=== PATIENT | male | born 1990 | race Caucasian/White ===

== ENCOUNTER 2019-05-04 18:01 | Emergency (ER) | payer BC, OTHER, SELFPAY ==
[2019-05-04 18:02] VITALS: BP 123/71; PULSE 119; RESP 16; TEMP 36.4; O2SAT 96; BMI 32.8
--- NOTE | 2019-05-04 18:24 | CT_ITS ---
STUDY: CT BRAIN WITHOUT CONTRAST REASON FOR EXAM: Male, 29 years old. Head and neck pain. RADIATION DOSAGE (If Supplied By Facility): CTDIvol = ( 44.99 ) mGy, DLP = ( 812.98 ) mGycm TECHNIQUE: Transaxial CT imaging of the brain was performed without administration of intravenous contrast material. Individualized dose optimization techniques were used for this CT. COMPARISON: CTA of the brain dated August 04, 2011 FINDINGS: Normal soft tissue structures. Normal calvarium. Normal size ventricles and extra-axial spaces for the patient's age. Normal white matter tracts of the cerebral hemispheres. Normal basal ganglia and thalami. Normal brainstem. Normal cerebellum. There is no intracranial hemorrhage. There are no findings of an acute ischemic infarction. Normal visualized paranasal sinuses. CT/Brain/Head without Contrast IMPRESSION: No acute intracranial process. Electronically Signed: Maya Díaz MD at 19:59 EDT Tel , Service support ,
--- NOTE | 2019-05-04 18:26 | ED.DCSUM_ITS ---
History of Present Illness Chief Complaint: Other, Pain/Inj Detail of Chief Complaint: Headache, neck pain Informant: Patient, Significant Other Onset: Weeks - 1 week Timing: Continuous Current Severity: Mild Maximum Severity: Moderate Narrative: Patient presents with a one-week history of neck pain and headache. He has a history of migraines and cluster headaches but states this headache is different. He initially started with neck pain. He denies any injury. He states that started after returning home from work. 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 He does report having some nausea and vomiting but no diarrhea. He has some mild abdominal pain. No sore throat. - Past Medical History (1) Frequent headaches Status: Chronic (2) ADHD Status: Chronic (3) Anxiety Status: Chronic (4) Depression Status: Chronic Past Medical History - Allergies and Home Meds Allergies/Adverse Reactions: Allergies No Known Allergies Allergy (Verified 05/04/19 18:02) Primary Care Physician: Billie Foster MD [Primary Care Provider] - Prior records reviewed: Yes Past Medical History: - - Reviewed Lives: Spouse/ Significant Other Smoking Status: Never smoker Review of Systems General: Reports: Fever - Subjective fever Eyes: Denies: Visual changes - left, Visual changes - right ENT: Denies: Bilateral ear pain, Sore throat Cardiovascular: Denies: Chest pain Respiratory: Denies: Dyspnea, Cough Gastrointestinal: Reports: Abdominal pain, Nausea, Vomiting. Denies: Diarrhea Genitourinary: Denies: Dysuria Musculoskeletal: Reports: Neck pain. Denies: Back pain, Extremity Pain Skin: Denies: Rash Neurological: Reports: Headache. Denies: Weakness, Parasthesia Hematologic: Denies: Easy bleeding Allergy: Denies: Uticaria Physical Exam Vital Signs/Narrative: Vital Signs Temp Pulse Resp BP Pulse Ox 05/04/19 18:02 97.6 F L 119 H 16 123/71 H 96 Inital Vital Signs reviewed: Yes General: Well nourished, Well developed Head: Normocephalic Eyes: Perrl, EOMI ENT: Moist mucous membranes, TM's clear, - - Diffuse tenderness to palpation throughout the cervical paraspinal region. There is no meningismus. He turns his head a full 90 degrees to each side. Cardiovascular: Regular rate, Regular rhythm Respiratory: No distress, CTA bilaterally Abdomen: Soft, Nontender, Normal bowel sounds Skin: Normal color Neurological: Alert, Oriented x3 Psychological: Normal affect Diagnostic/Tx/Re-eval Impressions Brain CT 05/04/19 18:24 IMPRESSION: No acute intracranial process. Electronically Signed: Maya Díaz MD at 19:59 EDT Tel , Service support , 05/04/19 18:24 Brain/Head without Contrast [CT] Stat Laboratory Results 05/04/19 05/04/19 18:30 18:30 WBC 5.2 RBC 4.58 L Hgb 14.1 Hct 39.3 L MCV 85.8 MCH 30.8 MCHC 35.9 RDW Std Deviation 38.0 RDW Coeff of Rhonda 12.2 Plt Count 154 MPV 10.1 Immature Gran % (Auto) 0.400 Neut % (Auto) 66.5 Lymph % (Auto) 21.9 [place] % (Auto) 10.8 H Eos % (Auto) 0.2 Baso % (Auto) 0.2 Absolute Neuts (auto) 3.5 Absolute Lymphs (auto) 1.14 Absolute Nucleated RBC 0.00 Nucleated RBC % 0 Sodium 133 L Potassium 3.6 Chloride 103 Carbon Dioxide 26.0 Anion Gap 4 L BUN 10 Creatinine 0.95 Estim Creat Clear Calc 122.20 Est GFR (MDRD) Af Amer 121 Est GFR (MDRD) Non-Af 100 BUN/Creatinine Ratio 10.5 Glucose 113 H Calcium 8.8 - Medical Decision Making Patient presented for a one-week history of neck pain and headache. He clinically does not have sign of meningitis. He was given Toradol, Reglan, and Benadryl along with IV fluids. Blood work and CT scan do not show any acute concerns. On repeat evaluation he states his headache is resolved and his neck pain is improved. He will be given a prescription for naproxen to help his neck pain. He is to return for worsening symptoms or concerns. ED Disposition - Plan for ED Patient: Disposition: Home or Assisted Living Diagnosis: Cephalgia, Neck pain Instructions: NECK PAIN, No Trauma, HEADACHE, Unspecified Prescriptions: Naproxen [Naprosyn] 500 mg PO BID PRN PRN #20 tablet PRN Reason: Pain Referrals: Billie Foster MD [Primary Care Provider] - 5-7 Days
[2019-05-04] MEDS: Ketorolac 30 MG/ML Syringe IV (18:35)
[2019-05-04] MEDS: 0.9% Normal Saline 1,000 ML 1000 ML IV (18:35)
[2019-05-04] MEDS: Metoclopramide 10 MG/2 ML Vial IV (18:35)
[2019-05-04] MEDS: DiphenhydrAMINE 50 MG/ML Syringe 25 MG IV (18:35)
[2019-05-04 18:48] LABS: Absolute Lymphocyte Count 1.14 X10^3/uL (0.83-4.51); Absolute Neutrophil Count 3.5 X10^3/uL (2.0-7.7); Basophil# 0.01 X10^3/uL; Basophil% 0.2 % (0-1); Eosinophil# 0.01 X10^3/uL; Eosinophils% 0.2 % (0-5); Hematocrit 39.3 % (40-54); Hemoglobin 14.1 g/dL (13.0-16.5); Lymphocyte # 1.14 X10^3/ul (4.0); Lymphocyte % 21.9 % (19-41); Mean Corp Hgb Conc 35.9 g/dL (32-36); Mean Corpuscular Hgb 30.8 pg (27.0-32.0); Mean Corpuscular Volume 85.8 fL (80-94); Mean Platelet Vol. 10.1 fl (6.2-12.0); Monocyte# 0.56 X10^3/uL; Monocyte% 10.8 % (0-10); NRBC Flagged by Analyzer 0 % (0-5); Neutrophil # 3.46 X10^3/uL (2.7-7.7); Neutrophil % 66.5 % (47-70); Platelet Count 154 K/mm3 (150-450); RBC Distribution Width CV 12.2 % (11.6-14.6); Red Blood Count 4.58 M/mm3 (4.6-6.2); White Blood Count 5.2 K/mm3 (4.4-11.0)
[2019-05-04 18:55] LABS: Anion Gap 4 (5-15); BUN 10 mg/dL (7-18); BUN/Creat Ratio 10.5 RATIO (10-20); Calcium,Total 8.8 mg/dL (8.5-10.1); Chloride 103 mmol/L (98-107); Creatinine, Serum 0.95 mg/dL (0.70-1.30); EST Glomerular Filtration Rate 100 mL/min (>60); Est Glom Filt Rate - Afr Amer 121 mL/min (>60); Glucose 113 mg/dL (74-106); Potassium 3.6 mmol/L (3.5-5.1); Sodium Level 133 mmol/L (136-145)
[2019-05-04 20:45] VITALS: BP 106/73; PULSE 79; RESP 16; O2SAT 98
== END 2019-05-04 20:46 | disposition home or self-care (01) ==
PROVIDERS: Emergency Provider Emergency Medicine; Family Provider Internal Medicine; PCP Internal Medicine
DX: R51 Headache (principal); M54.2 Cervicalgia
CPT/HCPCS: 70450; 80048; 85025; 96361; 96374; 96375; 99283; J7030; A4216

== ENCOUNTER 2019-05-21 18:08 | Emergency (ER) | payer BC, OTHER, SELFPAY ==
[2019-05-21 18:08] VITALS: BP 116/72; PULSE 114; RESP 18; TEMP 36.2; O2SAT 98; BMI 34.8
--- NOTE | 2019-05-21 18:42 | ED.VIS.GEN ---
History of Present Illness Chief Complaint: Rash Informant: Patient Onset: Month(s) - 1 or more Context: Gradual Onset Timing: Continuous Quality: sore Location: legs, forearms Current Severity: Moderate Maximum Severity: Moderate Worsened by: palpation Relieved by: leaving alone. not by ibuprofen. Associated Symptoms: joint pains, especially in MCPJs, wrists, knees, ankles Narrative: Patient was seen by his PCP less than 1 week ago for this condition, he had some labs done, he showed me the results. They include CBC, CMP, CPK, ESR, CRP, MIMA, TSH. MIMA was negative. ESR and CRP were just barely elevated. CPK and TSH were normal. The other results were fairly unremarkable. Patient has had painful raised red lumps on his legs and forearms, joint aches. He states the pain is worsened and he was told that if the pain did worsen he should come back to the ER. He denies any new symptoms. No fevers. No dysuria or urethral discharge. No recent treatment for any STDs. - Past Medical History (1) ADHD Status: Chronic (2) Anxiety Status: Chronic (3) Depression Status: Chronic (4) Frequent headaches Status: Chronic Past Medical History - Allergies and Home Meds Allergies/Adverse Reactions: Allergies No Known Allergies Allergy (Verified 05/04/19 18:02) Primary Care Physician: Billie Foster MD [Primary Care Provider] - Lives: Spouse/ Significant Other Smoking Status: Never smoker Drugs: None Review of Systems General: Reports: Weight loss - Unknown details.. Denies: Chills, Fever, Sweats Eyes: Denies: Visual changes - bilaterally, Diplopia ENT: Denies: Rhinorrhea, Sore throat Cardiovascular: Denies: Chest pain, Palpitations Respiratory: Denies: Dyspnea, Cough, Dyspnea on exertion Gastrointestinal: Denies: Abdominal pain, Nausea, Vomiting, Diarrhea, Melena, Hematochezia Genitourinary: Denies: Dysuria, Hematuria, Frequency Musculoskeletal: Reports: Arthralgias, Extremity Pain. Denies: Back pain, Swelling Skin: Reports: Rash. Denies: Abscess, Wounds Neurological: Reports: Headache - Off and on. Denies: Weakness, Numbness Physical Exam Vital Signs/Narrative: Vital Signs Temp Pulse Resp BP Pulse Ox 05/21/19 18:08 97.1 F L 114 H 18 116/72 98 Inital Vital Signs reviewed: Yes General: Well nourished, Well developed, No Acute Distress Head: Normocephalic, Atraumatic Eyes: Perrl, EOMI ENT: Moist mucous membranes, No rhinorrhea Neck: Supple, Nontender, No lymphadenopathy Extremities: No edema, Tenderness - At subcutaneous nodules on legs and more mild on forearms, - - Some swelling of both knees, ankles, no objective swelling elsewhere but has full range of motion of all joints throughout all 4 extremities. No excessive warmth or erythema noted. Has pain when moving knees, ankles, wrists, MCP J's. No Heberden's or Zehra's nodes objectively. Skin: Normal color, No Trauma, Rash - Mildly tender subcutaneous erythematous nodules on shins and medial calves, no palpable cords or lymphangitic streaking or signs of infection. Similar on forearms but smaller and not raised as much. No purpura, ecchymosis, petechiae, bullae. Neurological: Alert, Oriented x3, Cranial nerves II-XII grossly intact, Normal Strength, Normal Sensation, Normal Gait Psychological: Normal Mood, - - Anxious Diagnostic/Tx/Re-eval - Medical Decision Making Looking at the labs that were done on 05/16/2019, as the patient showed me from [facility] website, I do not think any of these need to be repeated. I do not think I have any other tests that will benefit him emergently at this time. I think it would be reasonable to try prednisone, he is amenable to trying that, I will do a 5-day burst to see if it helps, in addition to a dose of colchicine because the lower extremity exam is consistent with erythema nodosum. The cause is unknown at this time. He should follow-up with his PCP, he states he is planning on it has an appointment. ED Disposition - Plan for ED Patient: Disposition: Home or Assisted Living Diagnosis: Erythema nodosum, Arthralgia Instructions: Blank Diagnosis Form Prescriptions: Prednisone [Deltasone] 40 mg PO DAILY #10 tab Prescription Printed Referrals: Billie Foster MD [Primary Care Provider] - As soon as possible Additional Instructions: Erythema nodosum is an inflammatory disorder. It involves tender, red bumps (nodules) under the skin. Causes In about half of cases, the exact cause of erythema nodosum is unknown. The remaining cases are associated with an infection or other systemic disorder. Some of the more common infections associated with the disorder are: Streptococcus (most common) Cat scratch disease Chlamydia Coccidioidomycosis Hepatitis B Histoplasmosis Leptospirosis Mononucleosis (EBV) Mycobacteria Mycoplasma Psittacosis Syphilis Tuberculosis [place] Yersinia Erythema nodosum may occur with sensitivity to certain medicines, including: Antibiotics, including amoxicillin and other penicillins Sulfonamides Sulfones control pills Progestin Sometimes, erythema nodosum may occur during . Other disorders linked to this condition include leukemia, lymphoma, sarcoidosis, rheumatic fever, Bechet disease, and ulcerative colitis. The condition is more common in women than it is in men. Symptoms Erythema nodosum is most common on the front of the shins. It may also occur on other areas of the body such as buttocks, calves, ankles, thighs, and arms. The lesions begin as flat, firm, hot, red, painful lumps that are about 1 inch (2.5 centimeters) across. Within a few days, they may become purplish in color. Over several weeks, the lumps fade to a brownish, flat patch. Other symptoms may include: Fever General ill feeling (malaise) Joint aches Skin redness, inflammation, or irritation Swelling of the leg or other affected area Exams and Tests Your health care provider can diagnose this condition by looking at your skin. Tests that may be done include: Punch biopsy of a nodule Throat culture to rule out a strep infection Chest x-ray to rule out sarcoidosis or tuberculosis Blood tests to look for infections or other disorders Treatment The underlying infection, drug, or disease should be identified and treated. Treatment may include: Nonsteroidal anti-inflammatory drugs (NSAIDs). Stronger anti-inflammatory medicines called corticosteroids, taken by mouth or given as a shot. Potassium iodide (SSKI) solution, most often given as drops added to orange juice. Other oral medicines that work on the body's immune system. Pain medicines (analgesics). Rest. Raising the sore area (elevation). Hot or cold compresses to help reduce discomfort. [place] (Prognosis) Erythema nodosum is uncomfortable, but not dangerous in most cases. Symptoms most often go away within about 6 weeks, but may return.
[2019-05-21] MEDS: predniSONE 20 MG Tablet 40 MG PO (19:09)
== END 2019-05-21 19:35 | disposition home or self-care (01) ==
PROVIDERS: Emergency Provider Emergency Medicine; Family Provider Internal Medicine; PCP Internal Medicine
DX: L52 Erythema nodosum (principal); M25.50 Pain in unspecified joint; R51 Headache; F90.9 Attention-deficit hyperactivity disorder, unspecified type
CPT/HCPCS: 99283

== ENCOUNTER → 2019-09-05 11:31 | Outpatient (CLI) | payer BC, OTHER, SELFPAY | PROVIDERS: Family Provider Internal Medicine; PCP Internal Medicine; Referring Provider Obstetrics & Gynecology; Visit Provider Obstetrics & Gynecology | DX: Z31.440 Encounter of male for testing for genetic disease carrier status for procreative management (principal) | CPT/HCPCS: 36415 ==

== ENCOUNTER 2019-10-09 18:11 | Emergency (ER) | payer BC, OTHER, SELFPAY ==
[2019-10-09 18:12] VITALS: BP 123/76; PULSE 124; RESP 19; TEMP 36.7; O2SAT 99; BMI 33.5
[2019-10-09 18:22] VITALS: PULSE 120; RESP 15; O2SAT 99
[2019-10-09] MEDS: Metoclopramide 10 MG/2 ML Vial IV (18:44)
[2019-10-09] MEDS: DiphenhydrAMINE 50 MG/ML Syringe 25 MG IV (18:44)
[2019-10-09] MEDS: Ketorolac 30 MG/ML Syringe IV (18:44)
[2019-10-09] MEDS: 0.9% Normal Saline 1,000 ML 999 ML IV (18:44)
--- NOTE | 2019-10-09 19:52 | ED.DCSUM_ITS ---
History of Present Illness Chief Complaint: Nausea/Vomiting/Diarrhea Detail of Chief Complaint: Migraine Informant: Patient Onset: Today Context: Gradual Onset Current Severity: Moderate Maximum Severity: Moderate Narrative: Patient presents with migraine headache that started around 3 PM this afternoon. He states it is generalized in location. He said nausea and vomiting along with photophobia as well. His is currently down in L&D and is in labor. Patient is hoping to get some medication for his head so can go back down to be with her. Patient states this does feel typical of his migraines. Has had no recent head injury or URI symptoms. - Past Medical History (1) Frequent headaches Status: Chronic (2) ADHD Status: Chronic (3) Anxiety Status: Chronic (4) Depression Status: Chronic Past Medical History - Allergies and Home Meds Allergies/Adverse Reactions: Allergies No Known Allergies Allergy (Verified 10/09/19 18:11) Primary Care Physician: Billie Foster MD [Primary Care Provider] - Prior records reviewed: Yes Lives: With Family Smoking Status: Never smoker Review of Systems General: Denies: Chills, Fever Eyes: Denies: Visual changes - bilaterally ENT: Denies: Bilateral ear pain Cardiovascular: Denies: Chest pain Respiratory: Denies: Dyspnea, Cough Gastrointestinal: Reports: Nausea, Vomiting. Denies: Abdominal pain Musculoskeletal: Denies: Extremity Pain Skin: Denies: Rash Neurological: Reports: Headache. Denies: Weakness, Parasthesia Allergy: Denies: Uticaria Physical Exam Vital Signs/Narrative: Vital Signs Temp Pulse Resp BP Pulse Ox 10/09/19 18:22 120 H 15 99 10/09/19 18:12 98.0 F 124 H 19 H 123/76 H 99 Inital Vital Signs reviewed: Yes General: Well nourished, Well developed Head: Normocephalic ENT: Moist mucous membranes Neck: Supple Cardiovascular: Tachycardia Respiratory: No distress, CTA bilaterally Abdomen: Soft, Nontender, Nondistended Extremities: Nontender Skin: Normal color, No rash Neurological: Alert, Oriented x3, Normal Strength, Normal Sensation Psychological: Normal affect Diagnostic/Tx/Re-eval - Medical Decision Making Patient was given Toradol, Reglan, Benadryl, and IV fluids. On repeat evaluation he states his nausea is gone. His headache is at least 50% improved. He will be discharged at this time to go back down to L&D and be with his f amily. ED Disposition - Plan for ED Patient: Disposition: Home or Assisted Living Diagnosis: Migraine Instructions: ED, Migraine (Classical) Referrals: Billie Foster MD [Primary Care Provider] - As Needed
[2019-10-09 20:06] VITALS: BP 106/71; PULSE 99; RESP 16; O2SAT 98
== END 2019-10-09 20:09 | disposition home or self-care (01) ==
PROVIDERS: Emergency Provider Emergency Medicine; Family Provider Internal Medicine; PCP Internal Medicine
DX: G43.909 Migraine, unspecified, not intractable, without status migrainosus (principal); F32.9 Major depressive disorder, single episode, unspecified
CPT/HCPCS: 96361; 96374; 96375; 99284; J7030

== ENCOUNTER → 2019-11-21 15:51 | Outpatient (CLI) | payer BC, OTHER, SELFPAY ==
--- NOTE | 2019-11-21 15:55 | CT_ITS ---
STUDY: CT MAXILLOFACIAL SINUSES REASON FOR EXAM: Male, 29 years old. SINUSITIS AND BILATERAL EAR PAIN X 4 WEEKS RADIATION DOSAGE (If Supplied By Facility): CTDIvol = ( 33.06 ) mGy, DLP = ( 810.10 ) mGycm TECHNIQUE: The patient was scanned in a multi detector CT scanner. High resolution axial imaging was performed without the administration of intravenous contrast material. Sagittal and coronal images were reconstructed. Individualized dose optimization techniques were used for this CT. COMPARISON: None. FINDINGS: FRONTAL SINUSES: Normal aeration, without mucosal inflammatory disease. ETHMOIDAL SINUSES: Normal aeration, without mucosal inflammatory disease. MAXILLARY SINUSES: 2.6 cm left maxillary sinus mucosal retention cyst. No air-fluid levels. The right maxillary sinus is normal. SPHENOIDAL SINUSES: Normal aeration, without mucosal inflammatory disease. There is patency of the bilateral maxillary infundibuli with normal uncinate processes, ethmoid bullae, and hiatus semilunaris. Normal bilateral middle turbinates. Normal bilateral inferior turbinates. Normal midline nasal septum. There is patency of the bilateral nasal airways. The visualized osseous structures are normal. The visualized bilateral orbital contents are normal. Mastoid air cells are unremarkable. CT/Sinus/Facial Bone IMPRESSION: Left maxillary sinus mucosal retention cyst. Otherwise normal. Electronically Signed: Maverick Ludwig MD ([place]) at 15:39 EST , Service support ,
== END ==
PROVIDERS: PCP Internal Medicine; Referring Provider Otolaryngology; Visit Provider Otolaryngology
DX: J32.9 Chronic sinusitis, unspecified (principal)
CPT/HCPCS: 70486

== ENCOUNTER 2020-07-09 21:02 | Emergency (ER) | payer BC, OTHER, SELFPAY ==
[2020-07-09 21:04] VITALS: BP 120/91; PULSE 90; RESP 18; TEMP 36.8; O2SAT 99; BMI 28.3
--- NOTE | 2020-07-09 21:29 | ED.RN ---
PT PRESENTS WITH RAMBLING SPEECH, FIXATED ON VARIOUS HEALTH ISSUES, REMAINS COOPERATIVE, ANSWERS ALL QUESTIONS. PT ADAMANTLY DENIES SUICIDAL IDEATIONS, STATES ALL SELF INFLICTED WOUNDS ARE FROM BEING ANGERED, AND DEALING WITH PAIN AND FRUSTRATIONS.
--- NOTE | 2020-07-09 21:55 | ED.RN ---
PER DR. STANFORD, PT DOES NOT NEED A SITTER, HE WILL GO HOME ON A SAFETY PLAN.
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
[2020-07-09 23:16] VITALS: BP 122/89; PULSE 78; RESP 16; O2SAT 98
== END 2020-07-09 23:18 | disposition home or self-care (01) ==
PROVIDERS: Emergency Provider Emergency Medicine; PCP Internal Medicine
DX: S61.512A Laceration without foreign body of left wrist, initial encounter (principal); S51.812A Laceration without foreign body of left forearm, initial encounter; Y28.1XXA Contact with knife, undetermined intent, initial encounter; Y93.89 Activity, other specified; Y92.009 Unspecified place in unspecified non-institutional (private) residence as the place of occurrence of the external cause; S01.81XA Laceration without foreign body of other part of head, initial encounter; W22.8XXA Striking against or struck by other objects, initial encounter; Y93.02 Activity, running; F90.9 Attention-deficit hyperactivity disorder, unspecified type; F32.9 Major depressive disorder, single episode, unspecified; F41.9 Anxiety disorder, unspecified
CPT/HCPCS: 12001; 12011; 99285; A4216

== ENCOUNTER 2020-10-21 19:41 | Emergency (ER) | payer MEDICARE, MEDICAID, OTHER, SELFPAY ==
[2020-10-21 19:42] VITALS: BP 122/86; PULSE 96; RESP 15; TEMP 36.1; O2SAT 100; BMI 27.8
--- NOTE | 2020-10-21 20:01 | ED.VIS.GEN ---
History of Present Illness Chief Complaint: Headache Narrative: Patient presents with a few day history of gradual onset of a right-sided headache some of the headache is behind the right eye. He tells me he has both migraine headaches and cluster headaches and this feels similar to both. He denies vision changes. He denies weakness or paresthesias. No chest pain or shortness of breath. Review of systems: All systems negative except as indicated General: Denies: Fever Eyes: Denies: Visual changes - bilaterally ENT: Denies: Rhinorrhea, Sore throat Cardiovascular: Denies: Chest pain Respiratory: Denies: Dyspnea, Cough Gastrointestinal: Denies: Abdominal pain, Nausea, Vomiting Genitourinary: Denies: Dysuria Musculoskeletal: Denies: Myalgias Skin: Denies: Rash Neurological: Headache as in HPI Psych: Reports: negative Hematologic: Denies: Easy bruising, Easy bleeding Physical exam General: Well nourished, Well developed, No Acute Distress Head: Normocephalic, Atraumatic Eyes: Conjunctiva not pale ENT: Moist mucous membranes Neck: Supple, Nontender, No lymphadenopathy Cardiovascular: Regular rate, Regular rhythm Respiratory: No distress, CTA bilaterally Abdomen: Soft, Nontender, Nondistended Back: Nontender, Normal Inspection. Negative for: CVA tenderness Extremities: Nontender, No edema Skin: Normal color, No rash Neurological: Alert, Normal Strength, Normal Sensation, no focal neurological deficit. Psychological: Normal affect Past Medical History - Allergies and Home Meds Allergies/Adverse Reactions: Allergies No Known Allergies Allergy (Verified 10/21/20 19:44) Primary Care Physician: Billie Foster MD [Primary Care Provider] - Surgical History: noncontributory Smoking Status: Never smoker Physical Exam Vital Signs/Narrative: Vital Signs Temp Pulse Resp BP Pulse Ox 10/21/20 19:42 97 F L 96 15 122/86 H 100 Diagnostic/Tx/Re-eval - Medical Decision Making Patient has significant improvement of his headache. He appears well, he has a normal neurological exam. He has chronic recurrent headaches and this is similar with normal vitals I believe he can be discharged no further testing is needed. No imaging is needed. ED Disposition - Plan for ED Patient: Disposition: Home or Assisted Living Diagnosis: Headache Instructions: ED Headache Unspecified Referrals: Billie Foster MD [Primary Care Provider] - 2 Days
[2020-10-21] MEDS: 0.9% Normal Saline 1,000 ML 999 ML IV (20:17)
[2020-10-21] MEDS: Ketorolac 15 MG/ML Vial IV (20:18)
[2020-10-21] MEDS: DiphenhydrAMINE 50 MG/ML Syringe 25 MG IV (20:18)
[2020-10-21] MEDS: Metoclopramide 10 MG/2 ML Vial IV (20:18)
[2020-10-21 22:06] VITALS: BP 114/76; PULSE 82; RESP 16; O2SAT 98
== END 2020-10-21 22:06 | disposition home or self-care (01) ==
PROVIDERS: Emergency Provider Emergency Medicine; PCP Internal Medicine
DX: R51.9 Headache, unspecified (principal)
CPT/HCPCS: 96361; 96374; 96375; 99283

== ENCOUNTER 2021-06-04 13:29 | Emergency (ER) | payer MEDICARE, OTHER, MEDICAID, SELFPAY ==
[2021-06-04 13:30] VITALS: BP 118/72; PULSE 156; RESP 18; TEMP 37.7; O2SAT 98; BMI 32.1
--- NOTE | 2021-06-04 13:47 | EKG12_ITS ---
Test Reason : HEADACHE Blood Pressure : / mmHG Vent. Rate : 127 BPM Atrial Rate : 127 BPM P-R Int : 170 ms QRS Dur : 084 ms QT Int : 302 ms P-R-T Axes : 053 053 022 degrees QTc Int : 438 ms Sinus tachycardia Incomplete right bundle branch block Confirmed by SHIRA SIDDIQUI, STAS ([id number]), sound editor CHARLENE CARDONA ([id number]) on 06/08/2021 9:03:43 AM Referred By: CONSTANCE Confirmed By:STAS SILVA MD
--- NOTE | 2021-06-04 13:48 | EX.ED.DYSGE1 ---
HPI History of Present Illness Chief Complaint: Headache Informant: patient and spouse/S.O. Onset/Context/Timing Onset: Today Context: Gradual Onset Current Severity: Moderate Maximum Severity: Moderate Narrative Narrative: Patient present secondary to headache and fever. He started getting chills last evening and this morning developed a fever up to 101.3. He did not take anything for fever. He is complaining of a headache behind his eyes on both sides. He has a history of similar headaches but states that usually not bilateral. He was outside his window for his abortive migraine medicine and did not take that this morning. Patient's states that he has been complaining that his neck is stiff and he cannot talk his chin to his chest. Patient was seen a week ago with a right hand fracture and that is currently splinted. [facility] Medical History ADHD Anxiety Depression Frequent headaches Tachycardia Home Medications methotrexate sodium 10 tab PO QWEEK 10/09/19 [History Last Taken 10/03/19] adalimumab 1 injectable SQ QWEEK 07/09/20 [History Last Taken Unknown] baclofen 10 mg PO BID 07/09/20 [History Last Taken Unknown] folic acid 2 mg PO DAILY 07/09/20 [History Last Taken Unknown] galcanezumab-gnlm 120 mg SQ QMONTH 07/09/20 [History Last Taken Unknown] hydroxyzine HCl 50 mg PO TID PRN 07/09/20 [History Last Taken Unknown] ondansetron 4 mg PO Q8H PRN PRN 07/09/20 [History Last Taken Unknown] paliperidone 6 mg PO DAILY 10/21/20 [History Last Taken Unknown] sumatriptan succinate 100 mg PO .X1 PRN 10/21/20 [History Last Taken Unknown] Allergy/AdvReac Type Severity Reaction Status Date / Time No Known Allergies Allergy Verified 06/04/21 13:30 Social History Smoking Status: Never smoker ROS ROS ED Constitutional Constitutional ED: Reports chills and fever(s) Eyes Eyes: Reports other Details: Light sensitive ; Denies change in vision ENT ENT ED: Reports other Details: Neck stiffness ; Denies sore throat Cardiovascular Cardiovascular: Denies chest pain Respiratory/Chest Respiratory/Chest: Denies cough or dyspnea Gastrointestinal Gastrointestinal: Denies abdominal pain, diarrhea, nausea or vomiting Genitourinary Genitourinary ED: Denies dysuria Musculoskeletal Musculoskeletal: Reports neck pain; Denies back pain Integumentary Denies rash Neurologic Neurologic: Reports headache(s); Denies weakness Psychiatric Psychiatric: Denies anxiety or depression Allergic/Immunologic Allergic/Immunologic ED: Denies urticaria EXAM Physical Exam Const Vital Signs: 06/04/21 13:30 06/04/21 14:39 06/04/21 16:21 Temperature 99.8 F H Temperature Source Temporal Pulse Rate 156 H 126 H 125 H Respiratory Rate 18 20 H Blood Pressure 118/72 Blood Pressure Mean 87 Pulse Ox 98 Oxygen Delivery Method Room Air Positive well nourished and well developed General Appearance ED: well developed HEENT Reports normocephalic and head/scalp atraumatic Eyes PERRL and EOMs intact bilaterally Neck supple Neck Narrative: No meningismus on exam. Chest Wall inspection of chest normal and palpation of chest normal Resp normal respiratory effort and clear to auscultation bilaterally Cardio regular rate and regular rhythm GI normal to inspection, nondistended, normoactive bowel sounds Palpation: soft Extremity Extremity Narrative: Splint in place on right hand. Neuro oriented x3 and no sensory deficits noted Sensorium / Orientation: alert Motor Exam: strength 5/5 throughout Psych mental status grossly normal Skin no rashes or lesions noted MDM MDM MDM Narrative Medical decision making narrative: Patient was given Toradol, Reglan, Benadryl, IV fluids. Lab work obtained. Covid swab obtained. Lab Data Attestation: I reviewed the patient's lab results. Labs: Laboratory Results - last 24 hr 06/04/21 06/04/21 14:32 14:32 WBC 12.9 H RBC 3.91 L Hgb 13.0 Hct 36.5 L MCV 93.4 MCH 33.2 H MCHC 35.6 RDW Std Deviation 44.0 H RDW Coeff of Rhonda 12.9 Plt Count 188 MPV 9.1 Immature Gran % (Auto) 0.500 Neut % (Auto) 88.6 H Lymph % (Auto) 4.7 L [place] % (Auto) 6.0 Eos % (Auto) 0.0 Baso % (Auto) 0.2 Absolute Neuts (auto) 11.4 H Absolute Lymphs (auto) 0.61 L Nucleated RBC % 0 Sodium 139 Potassium 3.3 L Chloride 105 Carbon Dioxide 27.0 Anion Gap 7 BUN 18 Creatinine 0.91 Estim Creat Clear Calc 125.27 Est GFR (MDRD) Af Amer 125 Est GFR (MDRD) Non-Af 104 BUN/Creatinine Ratio 19.8 Glucose 91 Calcium 8.7 Covid swab negative Radiography Diagnostic Testing: Radiology Impression Hand X-Ray 06/04/21 16:10 IMPRESSION: Acute nondisplaced volarly angulated oblique fracture of the base of the fifth metacarpal bone. Electronically Signed: Doron Adams MD at 16:59 EDT Tel , Service support , EKG Initial EKG: Interpretation: Sinus Tachycardia (Sinus tach at 127. No acute ST change.) Treatment and Re-Evaluation Comments:: On repeat examination patient states his headache is improved from a 10 to an 8. As I walk in the room he is lying flat on his back with his head turned completely to the side with his chin touching his shoulder. I explained to family that there is no sign of meningitis. Patient is given 1 g of Solu-Medrol. Patient's right hand splint was removed by his spouse while here because it was bothering him. In light of this stated hand x-rays obtained and reveals a fracture at the base of the fifth metacarpal. Ulnar gutter splint is placed by myself at this time. Patient has follow-up appointment scheduled with orthopedics on Sunday. Patient has remained tachycardic with heart rate now in the high 1 teens. He states this has been ongoing since . He did recently wear a Holter monitor which he states he was told was normal, however he describes watching his heart rate on a pulse ox meter at home. Recently just walking across the room his heart rate would go up to 150. I will refer him to cardiology for further evaluation. Procedures Upper Extremity Splints Upper Extremity Splint: Orthoglass and - (Ulnar gutter splint) Splint Fabrication: Fabricated Location: Right Discharge Plan Triage Chief Complaint: Headache Other Complaint: Fever ED Provider: Arline Rdz Dx/Rx/DC Orders Clinical Impression: Cephalgia, Fracture of hand, Tachycardia Instructions: Treating Hand Fractures, Understanding Tachycardia, ED, Migraine (Classical) Prescriptions: No Action methotrexate sodium 2.5 tablet 10 tab PO QWEEK RF: 0 hydroxyzine HCl 50 MG tablet 50 mg PO TID PRN (Reason: Anxiety) RF: 0 baclofen 10 mg tablet 10 mg PO BID RF: 0 folic acid 1 MG tablet 2 mg PO DAILY RF: 0 ondansetron 4 MG tablet 4 mg PO Q8H PRN PRN (Reason: Nausea) RF: 0 adalimumab 40 mg/0.4 mL pen injector kit 1 injectable SQ QWEEK RF: 0 galcanezumab-gnlm 120 MG/ML pen injector 120 mg SQ QMONTH RF: 0 sumatriptan succinate 100 MG tablet 100 mg PO .X1 PRN RF: 0 paliperidone 6 MG tablet 6 mg PO DAILY RF: 0 Primary Care Provider: Billie Foster Referrals: Billie Foster MD [Primary Care Provider] - Cecy Carey MD [STAFF PHYSICIAN] - As Needed Activity Restrictions/Additional Instructions: Follow-up with orthopedics on Sunday as scheduled. Disposition Disposition: Home, Self Care
[2021-06-04 14:39] VITALS: PULSE 126
[2021-06-04] MEDS: Ketorolac 30 MG/ML Syringe IV (14:40)
[2021-06-04] MEDS: DiphenhydrAMINE 50 MG/ML Syringe 25 MG IV (14:40)
[2021-06-04] MEDS: Metoclopramide 10 MG/2 ML Vial IV (14:40)
[2021-06-04 15:11] LABS: Absolute Lymphocyte Count 0.61 X10^3/uL (0.83-4.51); Absolute Neutrophil Count 11.4 X10^3/uL (2.0-7.7); Basophil# 0.02 X10^3/uL; Basophil% 0.2 % (0-1); Hematocrit 36.5 % (40-54); Lymphocyte # 0.61 X10^3/ul (0.83-4.51); Lymphocyte % 4.7 % (19-41); Mean Corp Hgb Conc 35.6 g/dL (32-36); Mean Corpuscular Hgb 33.2 pg (27.0-32.0); Mean Corpuscular Volume 93.4 fL (80-94); Mean Platelet Vol. 9.1 fl (6.2-12.0); Monocyte# 0.77 X10^3/uL; NRBC Flagged by Analyzer 0 % (0-5); Neutrophil # 11.39 X10^3/uL (2.7-7.7); Neutrophil % 88.6 % (47-70); Platelet Count 188 K/mm3 (150-450); RBC Distribution Width CV 12.9 % (11.6-14.6); Red Blood Count 3.91 M/mm3 (4.6-6.2); White Blood Count 12.9 K/mm3 (4.4-11.0)
[2021-06-04 15:25] LABS: Anion Gap 7 (5-15); BUN 18 mg/dL (7-18); BUN/Creat Ratio 19.8 RATIO (10-20); Calcium,Total 8.7 mg/dL (8.5-10.1); Chloride 105 mmol/L (98-107); Creatinine, Serum 0.91 mg/dL (0.70-1.30); EST Glomerular Filtration Rate 104 mL/min (>60); Est Glom Filt Rate - Afr Amer 125 mL/min (>60); Estimated Creatinine Clearance 125.27 ml/min; Glucose 91 mg/dL (74-106); Potassium 3.3 mmol/L (3.5-5.1); Sodium Level 139 mmol/L (136-145)
--- NOTE | 2021-06-04 16:10 | RAD_ITS ---
STUDY: X-RAY - RIGHT HAND REASON FOR EXAM: Male, 31 years old. fracture TECHNIQUE: 3 view(s) of the hand. COMPARISON: None. FINDINGS: Normal radiocarpal articulation. Normal distal radioulnar joint. Normal visualized carpal bones. Normal carpal articulations Normal carpometacarpal articulation of the thumb. Normal second through fifth carpometacarpal joints. Acute nondisplaced medially angulated oblique fracture the base of the fifth metacarpal bone. Normal metacarpophalangeal joint of the thumb. Normal interphalangeal joint of the thumb. Normal proximal and distal phalanges of the thumb. Normal metacarpophalangeal joints of the second through fifth fingers. Normal proximal and distal interphalangeal joints of the second through fifth fingers. Normal phalanges of the second through fifth fingers. The soft tissue structures are unremarkable. RAD/Hand Min 3 Views IMPRESSION: Acute nondisplaced volarly angulated oblique fracture of the base of the fifth metacarpal bone. Electronically Signed: Doron Adams MD at 16:59 EDT Tel , Service support ,
[2021-06-04 16:21] VITALS: PULSE 125; RESP 20
[2021-06-04 18:01] VITALS: PULSE 111; RESP 22
[2021-06-04 18:03] VITALS: PULSE 112; RESP 22
== END 2021-06-04 18:10 | disposition home or self-care (01) ==
PROVIDERS: Emergency Provider Emergency Medicine; PCP Internal Medicine
DX: R51.9 Headache, unspecified (principal); R00.0 Tachycardia, unspecified; S62.346A Nondisplaced fracture of base of fifth metacarpal bone, right hand, initial encounter for closed fracture; X58.XXXA Exposure to other specified factors, initial encounter; Y93.9 Activity, unspecified; Y92.9 Unspecified place or not applicable; Y99.9 Unspecified external cause status
CPT/HCPCS: 29125; 73130; 80048; 85025; 87426; 93005; 96365; 96367; 99284; J7040; J7050; A4216; J2930

== ENCOUNTER 2021-09-30 09:30 | Outpatient (RCR) | payer MEDICARE, OTHER, MEDICAID, SELFPAY ==
--- NOTE | 2021-08-22 15:51 | HP.OTEVAL_ITS ---
Patient's Visit Information SURINDER CONLEY is a 31 year old M, referred to Occupational Therapy by LEX SANDRA, with a diagnosis of 5th metacarpal bone fx right hand. Date of Evaluation: 08/22/21 Occupational Therapist: Mago Darnell, MOHAMUDR/Teo, CHT - Subjective This 31 year old male was seen for OT eval with dx of rigth 5th metacarpal bone fx -pt states this happened in May. pt states injury happened on a Sat. and went to ER on Sunday- placed in splint for 4-6 weeks. pt has been without a splint since . pt states he has been using his hand for daily tasks but has increase pain with the activity. 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 pt would like to return to his PLOF. - Pain right hand/wrist 6 Pain Intensity Range: 8 - ROM Wrist: right 60/40 left 60/60 MP: right 0/90 left 0/100 PIP: right 0/90 left 0/80 DIP: right 0/80 left 0/080 - Strength Financial Sales Assistant: right 70# left 80# Lateral Pinch: right 6# left 8# Tripod Pinch: right 4# left 6# - Sensation Sensation Comments: denies - Quick DASH-Disab of Arm,Shoulder& Hand Quick DASH Score: 63.6350 - Goals Goal:: pt will demo a increase in right knowledge management advisor by 15# to increase pts ind. with ADLs and IADLs by d/c Goal:: pt will demo a increase in right MCP flex by 10* or greater to return pt to PLOF by dc Goal:: pt will report no pain greater than 3/10 with use of right hand with ADLS and IADLs by d.c. pt will demo the ability to form a tight composite fist with no pain greater than 3/10. Goal:: pt will demo understanding of wrist ergonomics to limit stress on fx site by end of 3rd visit. - Rehabilitation General Assessment: pt demo pain with use of right hand with daily occupations. pt would benefit from skilled OT services 2/3x week for 4 weeks. pt to have sx on his foot 08/29/21 and will not be able to attend OT for about 3 weeks. Therapist advised pt to stop pushing on injury site as this could be increasing his discomfort. therapist advised use of orthosis with heavy tasks and not to push body wt with right hand. therapist advised to lift no more than 8# until pain level is 3/10 or less- advised pt to limit vibration from tractors to about 15 min. pt demo understanding and was receptive to recommendations. therapist advised pt to use heat or ice to decrease pain- pt demo understanding- Rehabilitation Potential: Good - Anticipated Interventions A/AAROM/PROM, Strengthening, Orthoses, Joint Protection/Energy Conservation, Ergonomic Education, Education re assistive Equipment, Education re Diagnosis - Visit Plan Frequency: 2-3x /Week Duration: 4 Weeks General Plan: pt to have sx on his foot 08/29/21 and will not be able to attend OT for about 3 weeks. Therapist advised pt to stop pushing on injury site as this could be increasing his discomfort. therapist advised use of orthosis with heavy tasks and not to push body wt with right hand. therapist advised to lift no more than 8# until pain level is 3/10 or less- advised pt to limit vibration from tractors to about 15 min. pt demo understanding and was receptive to recommendations. TEXT: Thank you for the opportunity to evaluate your patient. For Medicare and Medicare HMO plans, please review the plan of care and approve it. It will need to be FAXED BACK to us at [phone] for Medicare purposes. Please let me know if there are questions or concerns regarding this plan of care. Physician Signature: Date:
--- NOTE | 2021-09-30 09:56 | HP.OTDCSUM_ITS ---
It has been my pleasure to treat SURINDER CONLEY under orders from LEX SANDRA, for the diagnosis of 5th metacarpal bone fx right hand for a total of 4 visit(s). Please see the following information for a summary of their discharge status. % Improvement: 75 Objective/Function: pt demo a right MCP 100 increase to 90 *. right PIP 95 increase from 90. right DIP 80 same. pt has met OT goals at this time Patient Goals: Decrease Pain, Be More Independent in ADLS Goal:: pt will demo a increase in right switch crew supervisor by 15# to increase pts ind. with ADLs and IADLs by d/c Goal:: pt will demo a increase in right MCP flex by 10* or greater to return pt to PLOF by dc Goal:: pt will report no pain greater than 3/10 with use of right hand with ADLS and IADLs by d.c. pt will demo the ability to form a tight composite fist with no pain greater than 3/10. Goal:: pt will demo understanding of wrist ergonomics to limit stress on fx site by end of 3rd visit. 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 Thank you for the referral of this patient. Sincerely, Mago Darnell, OTR/L, CHT
== END 2021-09-30 19:00 | disposition home or self-care (01) ==
LOC: OT 09:30
PROVIDERS: PCP Internal Medicine
DX: S62.306D Unspecified fracture of fifth metacarpal bone, right hand, subsequent encounter for fracture with routine healing (principal)
CPT/HCPCS: 97110; 97166; 97530

== ENCOUNTER 2022-08-22 11:04 | Emergency (ER) | payer MEDICARE, OTHER, MEDICAID, SELFPAY ==
[2022-08-22 11:06] VITALS: BP 130/87; PULSE 93; RESP 14; TEMP 36.2; O2SAT 97; BMI 32.8
--- NOTE | 2022-08-22 11:40 | EX.ED.DYSGE1 ---
HPI History of Present Illness Chief Complaint: Nausea/Vomiting Detail of Chief Complaint: Secondary to migraine headache Informant: patient Onset/Context/Timing Onset: Today Context: Gradual Onset Timing: Continuous Current Severity: Moderate Maximum Severity: Moderate Narrative Narrative: 30-year-old male history of migraine headaches. States he had a migraine headache today with associated nausea vomiting. Awoke with a headache this morning. Denies any falls or head trauma. He is on no blood thinners. He is never had any head or neck surgery. He has had prior negative CAT scans. There is no individual or family history of intracranial bleeds or aneurysms. He states this is typical for one of his migraines he gets pain behind both eyes. Associated nausea and vomiting. He denies any fever or neck pain. Prior similar symptoms: Yes Recent Illness/Hospitalization: No [facility] Medical History ADHD Anxiety Arthritis Back pain Depression Frequent headaches Seizure Severe headache SOB (shortness of breath) Tachycardia Home Medications paliperidone palmitate 39 mg/0.25 mL intramuscular syringe (Invega Sustenna) 39 mg IM QMONTH 09/17/17 [History Last Taken Unknown] sumatriptan succinate 25 mg tablet 25 mg PO ONCE 09/17/17 [History Last Taken Unknown] methotrexate sodium 2.5 mg tablet 10 tab PO QWEEK 10/09/19 [History Last Taken 10/03/19] adalimumab 40 mg/0.4 mL subcutaneous pen kit 1 injectable SQ QWEEK 07/09/20 [History Last Taken Unknown] baclofen 10 mg tablet 10 mg PO BID 07/09/20 [History Last Taken Unknown] folic acid 1 mg tablet 2 mg PO DAILY 07/09/20 [History Last Taken Unknown] galcanezumab-gnlm 120 mg/mL subcutaneous pen injector 120 mg SQ QMONTH 07/09/20 [History Last Taken Unknown] hydroxyzine HCl 50 mg tablet 50 mg PO TID PRN Anxiety 07/09/20 [History Last Taken Unknown] ondansetron 4 mg disintegrating tablet 4 mg PO Q8H PRN PRN Nausea 07/09/20 [History Last Taken Unknown] paliperidone 6 mg tablet,extended release 24 hr 6 mg PO DAILY 10/21/20 [History Last Taken Unknown] sumatriptan succinate 100 mg tablet 100 mg PO .X1 PRN 10/21/20 [History Last Taken Unknown] Allergy/AdvReac Type Severity Reaction Status Date / Time No Known Allergies Allergy Verified 09/30/21 12:42 Social History Smoking Status: Never smoker alcohol intake: current alcohol intake frequency: holidays/special occasions only ROS ROS ED ROS Narrative Headache with nausea and vomiting. Review of Systems ROS Unobtainable: Denies due to encephalopathy Constitutional Constitutional ED: Denies chills or fever(s) Eyes Eyes: Denies blurry vision ENT ENT ED: Denies ear pain Cardiovascular Cardiovascular: Denies chest pain Respiratory/Chest Respiratory/Chest: Denies cough or dyspnea Gastrointestinal Gastrointestinal: Reports nausea and vomiting; Denies abdominal pain, constipation, diarrhea or melena Genitourinary Genitourinary ED: Denies dysuria or hematuria Musculoskeletal Musculoskeletal: Denies arthralgias Integumentary Denies abscess Neurologic Neurologic: Reports headache(s) Psychiatric Psychiatric: Denies anxiety Endocrine Endocrinology: Denies cold intolerance Hematologic/Lymphatic Hematologic/Lymphatic: Reports none Allergic/Immunologic Allergic/Immunologic ED: Denies mouth swelling or tongue swelling EXAM Physical Exam Narrative Exam Narrative: 32-year-old male lying in a darkened room. Vital signs stable afebrile. H EENT exam unremarkable atraumatic. Pupils round reactive light. Photophobic. No facial droop. Normal speech. No signs of trauma. Neck nontender no meningismus. Full range of motion. Lungs clear to auscultation bilaterally. Heart regular rhythm no murmur. Abdomen soft nontender normal bowel sounds no peritoneal signs. Moving all 4 extremities. 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 Dorsi plantarflexion intact. Neurologic exam normal. NIH of 0. Const Vital Signs: 08/22/22 11:06 Temperature 97.2 F L Temperature Source Temporal Pulse Rate 93 Respiratory Rate 14 Blood Pressure 130/87 H Blood Pressure Mean 101 Pulse Ox 97 Oxygen Delivery Method Room Air Positive well nourished and well developed; Negative for cachectic, contractures or unkempt General Appearance ED: well developed and NAD; Negative for unkempt, cachectic, contractures, cyanotic or diaphoretic Nutritional Appearance: Negative for cachectic HEENT Reports moist mucous membranes; Denies dry mucous membranes Negative for trauma or tenderness Mouth ED: No dry mucous membranes Mouth: No dry mucous membranes Eyes PERRL and EOMs intact bilaterally General Eye ED: Negative for pale conjunctiva, scleral icterus or other Neck no lymphadenopathy, supple and no JVD General: Negative for tenderness Lymph Lymphatic: Negative for other Chest Wall inspection of chest normal and palpation of chest normal Chest: Negative for other Resp normal respiratory effort and clear to auscultation bilaterally Effort and Inspection: Negative for retractions or pain with movement Auscultation: Negative for rales, rhonchi or wheezes Cardio regular rate, regular rhythm, S1 normal heart sound, S2 normal heart sound and no murmurs Palpation: Negative for palpable S3 Rate: Negative for bradycardia Rhythm: Negative for abnormal rhythm GI normal to inspection, nondistended, normoactive bowel sounds, non-tender, non-distended and no masses Inspection: Negative for abdominal distention Auscultation: normoactive bowel sounds Palpation: soft; Negative for tender Back/Spine no CVA tenderness General Back: Negative for CVA tenderness Cervical Spine: Negative for cervical spine tenderness Thoracic Spine / Upper Back: Negative for thoracic spinal tenderness Lumbar Spine / Lower Back: Negative for lumbar spinal tenderness Extremity normal to inspection General Extremety ED: Negative for edema or tenderness General Extremity: Negative for edema Neuro CN's II-XII intact bilaterally and no sensory deficits noted Sensorium / Orientation: alert; Negative for orientation impaired, lethargic or stuporous Motor Exam: strength 5/5 throughout Psych mental status grossly normal Appearance: Negative for unkempt Attitude: No agitated Mood & Affect: Negative for depressed, anxious or tearful Skin no rashes or lesions noted, no wounds and skin turgor normal General Skin Exam: elasticity normal Lesions: No lesion noted Rashes: No rashes noted Trauma: Negative for abrasion Wounds: Negative for wounds noted MDM MDM MDM Narrative Medical decision making narrative: 32-year-old male history of migraines exam and history are consistent with a migraine headache with nausea and vomiting. He will be treated with IV fluids, IV Zofran, IV Toradol and Benadryl and reassess. His neurologic exam is normal. He has had prior negative imaging. Repeat exam patient is improving at 12:20 PM. Neurologic exam remains normal. He will be reevaluated but at this time he does not need any more medication. Discharge Plan Triage Chief Complaint: Nausea/Vomiting Other Complaint: Chest Pain ED Provider: Oleksandr Dawkins Dx/Rx/DC Orders Clinical Impression: Headache, migraine, Nausea & vomiting Instructions: ED, Migraine (Classical) Prescriptions: No Action paliperidone palmitate [Invega Sustenna] 39 mg/0.25 mL syringe 39 mg IM QMONTH sumatriptan succinate 25 mg tablet 25 mg PO ONCE methotrexate sodium 2.5 tablet 10 tab PO QWEEK hydroxyzine HCl 50 MG tablet 50 mg PO TID PRN (Reason: Anxiety) baclofen 10 mg tablet 10 mg PO BID Label Comments: take 1 tablet by mouth twice a day folic acid 1 MG tablet 2 mg PO DAILY ondansetron 4 MG tablet 4 mg PO Q8H PRN PRN (Reason: Nausea) adalimumab 40 mg/0.4 mL pen injector kit 1 injectable SQ QWEEK Rx Instructions: BIWEEKLY galcanezumab-gnlm 120 MG/ML pen injector 120 mg SQ QMONTH sumatriptan succinate 100 MG tablet 100 mg PO .X1 PRN paliperidone 6 MG tablet 6 mg PO DAILY Primary Care Provider: Billie Foster Referrals: Billie Foster MD [Primary Care Provider] - 1-2 Days if not improving Activity Restrictions/Additional Instructions: Plenty of fluids and rest. Motrin and Tylenol for pain. Follow-up if not improving or return if worse. Zofran as needed for nausea. Disposition Disposition: Home, Self Care
[2022-08-22] MEDS: Ondansetron 4 MG/2 ML Vial IV (11:47)
[2022-08-22] MEDS: 0.9% Normal Saline 1,000 ML 1000 ML IV (11:47)
[2022-08-22] MEDS: Ketorolac 30 MG/ML Syringe IV (11:47)
[2022-08-22] MEDS: DiphenhydrAMINE 50 MG/ML Syringe IV (11:48)
[2022-08-22 13:22] VITALS: RESP 18
== END 2022-08-22 13:23 | disposition home or self-care (01) ==
LOC: ED 12:20
PROVIDERS: Emergency Provider Emergency Medicine; PCP Internal Medicine; Visit Provider Emergency Medicine
DX: G43.909 Migraine, unspecified, not intractable, without status migrainosus (principal); R11.2 Nausea with vomiting, unspecified
CPT/HCPCS: 96361; 96374; 96375; 99284; J7030; A4216; J2405

== ENCOUNTER 2023-02-20 18:58 | Emergency (ER) | payer OTHER, MEDICAID, SELFPAY ==
[2023-02-20 18:59] VITALS: BP 170/98; PULSE 99; RESP 18; TEMP 36.6; O2SAT 99; BMI 33.5
--- NOTE | 2023-02-20 19:12 | RAD_ITS ---
STUDY: X-RAY - RIGHT HAND, ATTENTION FIRST FINGER REASON FOR EXAM: Male, 32 years old. SWELLING, RIGHT THUMB TECHNIQUE: 3 view(s) of the finger were obtained. COMPARISON: None. FINDINGS: Normal metacarpal head. Normal metacarpophalangeal joint. Normal proximal phalanx. Normal distal phalanx. Normal interphalangeal joint. There is diffuse soft tissue swelling. RAD/Finger(s) Min 2 Views IMPRESSION: Diffuse soft tissue swelling, otherwise normal bones and joints. Electronically Signed: Anthony Pagan MD at 19:28 EDT ,
--- NOTE | 2023-02-20 20:35 | EX.ED.DYSGE1 ---
HPI History of Present Illness Chief Complaint: Abscess Informant: patient Onset/Context/Timing Onset: Weeks (1) Context: Gradual Onset Timing: Continuous Quality: Sharp, burning Location: Right thumb Worsened by: Palpation Relieved by: Nothing Narrative Narrative: Patient presents with pain and swelling to his right thumb that has been getting worse over the past week. Patient admits to some drainage from the nail margin. Patient states sometimes it was bloody sometimes it was green. Patient denies any fevers or chills. Patient describes the pain as sharp and burning. Patient states it is worse whenever he bumps it or touches it. Patient does admit to some mild tingling in the tip of his thumb but denies any weakness. [facility] Medical History (Updated 02/20/23 @ 20:[address] Francis Gutiérrez, ) ADHD Anxiety Arthritis Back pain Depression Frequent headaches Seizure Severe headache SOB (shortness of breath) Tachycardia Home Medications paliperidone palmitate 39 mg/0.25 mL intramuscular syringe (Invega Sustenna) 39 mg IM QMONTH 09/17/17 [History Last Taken Unknown] sumatriptan succinate 25 mg tablet 25 mg PO ONCE 09/17/17 [History Last Taken Unknown] methotrexate sodium 2.5 mg tablet 10 tab PO QWEEK 10/09/19 [History Last Taken 10/03/19] adalimumab 40 mg/0.4 mL subcutaneous pen kit 1 injectable SQ QWEEK 07/09/20 [History Last Taken Unknown] baclofen 10 mg tablet 10 mg PO BID 07/09/20 [History Last Taken Unknown] folic acid 1 mg tablet 2 mg PO DAILY 07/09/20 [History Last Taken Unknown] galcanezumab-gnlm 120 mg/mL subcutaneous pen injector 120 mg SQ QMONTH 07/09/20 [History Last Taken Unknown] hydroxyzine HCl 50 mg tablet 50 mg PO TID PRN Anxiety 07/09/20 [History Last Taken Unknown] ondansetron 4 mg disintegrating tablet 4 mg PO Q8H PRN PRN Nausea 07/09/20 [History Last Taken Unknown] paliperidone 6 mg tablet,extended release 24 hr 6 mg PO DAILY 10/21/20 [History Last Taken Unknown] sumatriptan succinate 100 mg tablet 100 mg PO .X1 PRN 10/21/20 [History Last Taken Unknown] Allergy/AdvReac Type Severity Reaction Status Date / Time duloxetine [From Cymbalta] AdvReac NEEDS Verified 02/20/23 19:12 FOLLOW-UP pregabalin [From Lyrica] AdvReac NEEDS Verified 02/20/23 19:12 FOLLOW-UP Surgical History (Updated 02/20/23 @ 20:[address] Francis Gutiérrez DO) S/P excision of Leiva's neuroma Social History Smoking Status: Never smoker alcohol intake: current alcohol intake frequency: holidays/special occasions only ROS ROS ED Constitutional Constitutional ED: Denies chills or fever(s) Eyes Eyes: Denies blurry vision or change in vision ENT ENT ED: Denies rhinorrhea or sore throat Cardiovascular Cardiovascular: Denies chest pain or palpitations Respiratory/Chest Respiratory/Chest: Denies cough or dyspnea Gastrointestinal Gastrointestinal: Denies nausea or vomiting Genitourinary Genitourinary ED: Denies dysuria or hematuria Musculoskeletal Musculoskeletal: Denies back pain or neck pain Integumentary Denies abscess or rash Neurologic Neurologic: Denies headache(s) or weakness Allergic/Immunologic Allergic/Immunologic ED: Denies mouth swelling or urticaria EXAM Physical Exam Const Vital Signs: 02/20/23 18:59 Temperature 98 F Temperature Source Temporal Pulse Rate 99 Respiratory Rate 18 Blood Pressure 170/98 H Blood Pressure Mean 122 Pulse Ox 99 Oxygen Delivery Method Room Air Positive well nourished and well developed General Appearance ED: well developed and NAD HEENT Reports moist mucous membranes Neck supple and no JVD Extremity Extremity Narrative: There is tenderness, edema, and erythema along the radial nail margin of the right thumb. There is mild fluctuance. There is no active discharge or drainage. Sensation was intact to light touch in all digits. Capillary refill is less than 2 seconds in all digits. Radial pulses are equal bilaterally. Strength is 5/5 in flexion extension of the IP and MP joints of the right thumb. Neuro oriented x3, CN's II-XII intact bilaterally and no sensory deficits noted Sensorium / Orientation: alert Motor Exam: strength 5/5 throughout Psych mental status grossly normal MDM MDM MDM Narrative Medical decision making narrative: X-rays of the right thumb were ordered by triage nurse to assess for foreign body and osteomyelitis. Patient was advised that this is a paronychia. Patient was advised of the need for incision and drainage. Patient is agreeable with this. Patient states his primary care physician called him in a prescription for doxycycline. Patient states he has been unable to get this from the pharmacy yet. Patient was given a dose of doxycycline here. The right thumb was cleaned and prepped in a sterile manner. The tip of an 11 blade scalpel was used to make a small incision along the radial nail margin of the right thumb. Moderate amount of purulent drainage was expressed. Patient tolerated the procedure well. Patient was given a dose of doxycycline here. Patient was instructed to pickling grader his prescription for doxycycline. Patient thinks he will be able to do this tomorrow. Patient was instructed to keep the area clean and dry. Patient was instructed to follow-up with his primary care physician in 5 to 7 days. Patient understood and was agreeable with plan. All questions were answered. Radiography Diagnostic Testing: Clinical Impression(s) from Imaging Studies Finger X-Ray 02/20/23 19:12 IMPRESSION: Diffuse soft tissue swelling, otherwise normal bones and joints. Electronically Signed: Anhtony Pagan MD at 19:28 EDT , X-rays of the right thumb were obtained. There are 3 views. On my independent interpretation, there is no acute fracture or evidence of osteomyelitis. There is no foreign body noted. There is some soft tissue swelling noted. Radiologist also interpreted the x-rays and agrees. Discharge Plan Triage Chief Complaint: Abscess Other Complaint: Upper Extremity Injury ED Provider: Francis Gutiérrez Dx/Rx/DC Orders Clinical Impression: Paronychia of right thumb Instructions: ED Paronychia of the Finger or Toe Prescriptions: No Action paliperidone palmitate [Invega Sustenna] 39 mg/0.25 mL syringe 39 mg IM QMONTH sumatriptan succinate 25 mg tablet 25 mg PO ONCE methotrexate sodium 2.5 tablet 10 tab PO QWEEK hydroxyzine HCl 50 MG tablet 50 mg PO TID PRN (Reason: Anxiety) baclofen 10 mg tablet 10 mg PO BID Label Comments: take 1 tablet by mouth twice a day folic acid 1 MG tablet 2 mg PO DAILY ondansetron 4 MG tablet 4 mg PO Q8H PRN PRN (Reason: Nausea) adalimumab 40 mg/0.4 mL pen injector kit 1 injectable SQ QWEEK Rx Instructions: BIWEEKLY galcanezumab-gnlm 120 MG/ML pen injector 120 mg SQ QMONTH sumatriptan succinate 100 MG tablet 100 mg PO .X1 PRN paliperidone 6 MG tablet 6 mg PO DAILY Primary Care Provider: Billie Foster Referrals: Billie Foster MD [Primary Care Provider] - 5-7 Days Disposition Disposition: Home, Self Care
[2023-02-20] MEDS: Doxycycline 100 MG CAPSULE PO (21:02)
[2023-02-20 21:30] VITALS: BP 116/93; PULSE 82; RESP 18; O2SAT 100
== END 2023-02-20 21:31 | disposition home or self-care (01) ==
PROVIDERS: Emergency Provider Emergency Medicine; PCP Internal Medicine; Visit Provider Emergency Medicine
DX: L03.011 Cellulitis of right finger (principal)
CPT/HCPCS: 26010; 10060; 73140; 99283

== ENCOUNTER 2023-05-20 21:46 | Emergency (ER) | payer OTHER, MEDICAID, SELFPAY ==
[2023-05-20 21:47] VITALS: BP 129/94; PULSE 77; RESP 16; TEMP 36.9; O2SAT 100; BMI 34.0
--- NOTE | 2023-05-20 22:23 | EDS_ITS ---
HPI History of Present Illness Chief Complaint: Headache Narrative Narrative: Patient presents with migraine. This has been going on since yesterday. He had trouble using the sumatriptan injectable pens that he has at home. He states the new design of pain is hard for him to use because he has arthritis in his hands. Therefore he missed his window where the sumatriptan works. He has also had multiple change of his monthly and regular injection meds recently. He also had daily ketamine infusions earlier this week that sometimes exacerbate his headaches and sometimes help them. He has a extremely long history of migraines. He states he has a migraine essentially every day of his life. This is just the same typical pattern but worse. He states it started on the right side but seems to be more on the left now. Its not uncommon to switch. He has had nausea but not vomiting. He mentioned he had congestion of his nose when the pain was on the right. Yet when we talk about cluster headaches he says he has been told he might have a type of headache intermediate between migraines and clusters but has never been officially diagnosed with cluster headaches. He has no recent trauma. He has no recent fevers. He basically states that this is a typical migraine for him and is just not working with his meds at home. [facility] Medical History ADHD Anxiety Arthritis Back pain Depression Frequent headaches Seizure Severe headache SOB (shortness of breath) Tachycardia Home Medications folic acid 1 mg tablet 1 mg PO DAILY 07/09/20 [History Last Taken Unknown] hydroxyzine HCl 50 mg tablet 50 mg PO TID PRN Anxiety 07/09/20 [History Last Taken Unknown] ondansetron 4 mg disintegrating tablet 4 mg PO Q8H PRN PRN Nausea 07/09/20 [History Last Taken Unknown] abatacept 125 mg/mL subcutaneous auto-injector (Orencia ClickJect) 125 mg subcut QWEEK 05/20/23 [History Last Taken Unknown] buprenorphine 2 mg-naloxone 0.5 mg sublingual tablet 1 tab sublingual DAILY 05/20/23 [History Last Taken Unknown] buspirone 15 mg tablet 30 mg PO DAILY 05/20/23 [History Last Taken Unknown] fluticasone propionate 50 mcg/actuation nasal spray,suspension 2 spray intranasal DAILY 05/20/23 [History Last Taken Unknown] fremanezumab-vfrm 225 mg/1.5 mL subcutaneous auto-injector (Ajovy) 225 mg subcut QMONTH 05/20/23 [History Last Taken Unknown] hydroxychloroquine 200 mg tablet 200 mg PO DAILY 05/20/23 [History Last Taken Unknown] lubiprostone 24 mcg capsule 24 mcg PO BID 05/20/23 [History Last Taken Unknown] melatonin 10 mg tablet 10 mg PO QHS 05/20/23 [History Last Taken Unknown] memantine 5 mg tablet 10 mg PO QHS 05/20/23 [History Last Taken Unknown] methotrexate sodium 25 mg/mL injection solution 25 mg subcut QWEEK 05/20/23 [History Last Taken Unknown] naloxegol 25 mg tablet (Movantik) 25 mg PO DAILY 05/20/23 [History Last Taken Unknown] paliperidone 9 mg tablet,extended release 24 hr 9 mg PO DAILY 05/20/23 [History Last Taken Unknown] pantoprazole 40 mg tablet,delayed release 40 mg PO BID 05/20/23 [History Last Taken Unknown] prednisone 10 mg tablet 10 mg PO DAILY 05/20/23 [History Last Taken Unknown] sertraline 25 mg tablet 25 mg PO DAILY 05/20/23 [History Last Taken Unknown] tizanidine 4 mg capsule 4 mg PO TID 05/20/23 [History Last Taken Unknown] verapamil 180 mg 24 hr capsule,extended release 180 mg PO DAILY 05/20/23 [History Last Taken Unknown] Allergy/AdvReac Type Severity Reaction Status Date / Time duloxetine [From Cymbalta] AdvReac NEEDS Verified 05/20/23 21:49 FOLLOW-UP pregabalin [From Lyrica] AdvReac NEEDS Verified 05/20/23 21:49 FOLLOW-UP Surgical History S/P excision of Leiva's neuroma Social History Smoking Status: Never smoker alcohol intake: current alcohol intake frequency: holidays/special occasions only ROS ROS ED ROS Narrative A complete review of systems was performed and is negative except as documented in the history of present illness. Some specific details below. Constitutional: No recent fevers or chills. No rigors. Patient has not generally felt ill. EYE: No discharge, visual complaints, or pain. He does have some photophobia which is typical ENT: No difficulty swallowing. No swelling. No sinus pressure or pain. No nasal discharge but he did have some congestion on the right which is now gone. No change in hearing. No ear pain. CV: No chest pain, pressure or aching. No palpitations or irregular beats. Patient has not been presyncopal or syncopal. Respiratory: No trouble breathing. No cough. No wheezing. No sputum production. No pain with breathing. GI: No abdominal pain. He has had some nausea but no vomiting diarrhea. No blood in stool. : No frequency dysuria or hematuria. Musculoskeletal: No recent trauma. No pains. No swelling. Skin: No rash. No diaphoresis. Neuro: No weakness or numbness. No difficulty with speaking. No difficulty understanding speech. No visual loss. Please see history of present illness a lso. Endocrine: No polyuria or polydipsia. EXAM Physical Exam Narrative Exam Narrative: CONSTITUTIONAL: Patient is nontoxic in appearance. The patient looks comfortable. He actually carries on very normal conversation. HEENT: No notable trauma. Mucous membranes moist. No sinus tenderness. Tympanic membranes are normal. No temporal artery tenderness. No facial rashes or swelling. EYES: No conjunctival injection. No proptosis. No pain with range of motion. Funduscopic exam shows no marked abnormalities. Minimal photophobia is noted. NECK: No meningismus. No JVD. Range of motion is normal looking up down left and right without discomfort. CARDIOVASCULAR: Regular rate. Regular rhythm. No notable murmur. No JVD. RESPIRATORY: No respiratory distress. Breathing is unlabored. No wheezes. No rhonchi. No rales. No pain with a deep breath. GASTROINTESTINAL: Not distended. Bowel sounds are normal. No tenderness. GENITOURINARY: No tenderness over the bladder. No CVA tenderness. MUSCULOSKELETAL: Atraumatic. No peripheral edema. No cord. No tenderness along the deep venous system. No asymmetry. NEUROLOGICAL: Patient is alert and oriented. No focal deficit noted. SKIN: No noted rashes. No diaphoresis. No vesicles noted. PSYCHIATRIC: Patient is calm. Mood is appropriate. Const Vital Signs: 05/20/23 21:47 Temperature 98.4 F Temperature Source Temporal Pulse Rate 77 Respiratory Rate 16 Blood Pressure 129/94 H Blood Pressure Mean 105 Pulse Ox 100 Oxygen Delivery Method Room Air MDM MDM MDM Narrative Medical decision making narrative: Patient was given IV fluids, Benadryl, and metoclopramide. He is rechecked. He is resting now. His headache is not completely gone but it is markedly improved. He and his want to go. I will also give him a dose of Toradol as he has had help with this. We discussed reasons to return. Discharge Plan Triage Chief Complaint: Headache ED Provider: Jcarlos Cason Dx/Rx/DC Orders Clinical Impression: Migraine, Nausea Instructions: ED, Migraine (Classical) Prescriptions: No Action hydroxyzine HCl 50 MG tablet 50 mg PO TID PRN (Reason: Anxiety) folic acid 1 MG tablet 1 mg PO DAILY ondansetron 4 MG tablet 4 mg PO Q8H PRN PRN (Reason: Nausea) prednisone 10 mg tablet 10 mg PO DAILY Orencia ClickJect 125 mg/mL auto-injector 125 mg subcut QWEEK sertraline 25 mg tablet 25 mg PO DAILY Patient Comments: take 1 tablet by mouth every morning melatonin 10 mg tablet 10 mg PO QHS Patient Comments: take 1 tablet by mouth once daily at bedtime Ajovy Autoinjector 225 mg/1.5 mL auto-injector 225 mg subcut QMONTH verapamil 180 mg capsule,ext rel. pellets 24 hr 180 mg PO DAILY Patient Comments: take 1 capsule by mouth once daily buprenorphine-naloxone 2-0.5 mg tablet, sublingual 1 tab sublingual DAILY Movantik 25 mg tablet 25 mg PO DAILY Rx Instructions: must be taken on empty stomach; no food 1 hr after or 2-3 hrs before dose lubiprostone 24 mcg capsule 24 mcg PO BID hydroxychloroquine 200 mg tablet 200 mg PO DAILY tizanidine 4 mg capsule 4 mg PO TID methotrexate sodium 25 mg/mL solution 25 mg subcut QWEEK Patient Comments: inject 1 milliliter subcutaneously every week memantine 5 mg tablet 10 mg PO QHS Patient Comments: take 1 tablet by mouth at bedtime for 1 week then INCREASE to 2 tablets by mouth at bedtime pantoprazole 40 mg tablet,delayed release (DR/EC) 40 mg PO BID fluticasone propionate 50 mcg/actuation spray,suspension 2 spray INTRANASAL DAILY Patient Comments: instill 2 sprays into each nostril once daily buspirone 15 mg tablet 30 mg PO DAILY Patient Comments: take 1 tablet by mouth twice a day paliperidone 9 mg tablet extended release 24hr 9 mg PO DAILY Patient Comments: take 1 tablet by mouth at bedtime Primary Care Provider: Billie Foster Referrals: Billie Foster MD [Primary Care Provider] - As Needed Activity Restrictions/Additional Instructions: Follow-up with your neurologist for further management. Disposition Disposition: Home, Self Care
[2023-05-20] MEDS: Metoclopramide 10 MG/2 ML Vial IV (22:36)
[2023-05-20] MEDS: 0.9% Normal Saline 1,000 ML 999 ML IV (22:36)
[2023-05-20] MEDS: DiphenhydrAMINE 50 MG/ML Syringe IV (22:37)
[2023-05-20] MEDS: Ketorolac 15 MG/ML Vial IV (23:51)
== END 2023-05-20 23:55 | disposition home or self-care (01) ==
PROVIDERS: Emergency Provider Emergency Medicine; PCP Internal Medicine; Visit Provider Emergency Medicine
DX: G43.909 Migraine, unspecified, not intractable, without status migrainosus (principal)
CPT/HCPCS: 96361; 96374; 96375; 99282; J7030; A4216

== ENCOUNTER 2024-03-18 18:41 | Emergency (ER) | payer OTHER, MEDICAID, SELFPAY ==
[2024-03-18 18:42] VITALS: BP 119/83; PULSE 71; RESP 18; TEMP 36.1; O2SAT 99; BMI 32.6
[2024-03-18 20:48] VITALS: BP 120/77; PULSE 65; RESP 17; TEMP 36.7; O2SAT 99
--- NOTE | 2024-03-18 23:08 | EX.ED.UPPERE ---
HPI History of Present Illness Chief Complaint: Wound Check Narrative Narrative: 33-year-old male, [id number], presents for wound check of his open tuft fracture of the index finger on his left hand. He states that he was seen 2 days ago at an outside facility in [place], [place], where he was diagnosed with a fracture of the tip of his left index finger. He got it caught in a machinery belt. He has a subungual hematoma, and a laceration on the tip of his finger and the nail germinal matrix that was sewn closed. He states that he has an appointment with his primary care provider tomorrow for referral to orthopedic hand surgery, but his mother who is an RN was concerned because he did not have capillary refill in his left index fingertip. He denies any fevers or chills, but wants to make sure that his finger is infected. Additionally, when he presses on his nail/nailbed, there is an area that was not sewn where dark red blood leaks out. He was unsure if this is active bleeding. [facility] Medical History Sleep apnea Fibromyalgia Rheumatoid arthritis Back pain Seizure Severe headache SOB (shortness of breath) Arthritis Tachycardia Depression Anxiety ADHD Frequent headaches Home Medications ?Medication ?Instructions ?Recorded ?Last Taken ?Type folic acid 1 mg tablet 1 mg PO DAILY 07/09/20 Unknown History hydroxyzine HCl 50 mg tablet 50 mg PO TID PRN Anxiety 07/09/20 Unknown History ondansetron 4 mg disintegrating 4 mg PO Q8H PRN PRN Nausea 07/09/20 Unknown History tablet abatacept 125 mg/mL subcutaneous 125 mg subcut QWEEK 05/20/23 Unknown History auto-injector (Orencia ClickJect) buprenorphine 2 mg-naloxone 0.5 mg 1 tab sublingual DAILY 05/20/23 Unknown History sublingual tablet buspirone 15 mg tablet 30 mg PO DAILY 05/20/23 Unknown History fluticasone propionate 50 2 spray intranasal DAILY 05/20/23 Unknown History mcg/actuation nasal spray,suspension fremanezumab-vfrm 225 mg/1.5 mL 225 mg subcut QMONTH 05/20/23 Unknown History subcutaneous auto-injector (Ajovy) hydroxychloroquine 200 mg tablet 200 mg PO DAILY 05/20/23 Unknown History lubiprostone 24 mcg capsule 24 mcg PO BID 05/20/23 Unknown History melatonin 10 mg tablet 10 mg PO QHS 05/20/23 Unknown History memantine 5 mg tablet 10 mg PO QHS 05/20/23 Unknown History methotrexate sodium 25 mg/mL 25 mg subcut QWEEK 05/20/23 Unknown History injection solution naloxegol 25 mg tablet (Movantik) 25 mg PO DAILY 05/20/23 Unknown History paliperidone 9 mg tablet,extended 9 mg PO DAILY 05/20/23 Unknown History release 24 hr pantoprazole 40 mg tablet,delayed 40 mg PO BID 05/20/23 Unknown History release prednisone 10 mg tablet 10 mg PO DAILY 05/20/23 Unknown History sertraline 25 mg tablet 25 mg PO DAILY 05/20/23 Unknown History tizanidine 4 mg capsule 4 mg PO TID 05/20/23 Unknown History verapamil 180 mg 24 hr 180 mg PO DAILY 05/20/23 Unknown History capsule,extended release pregabalin 25 mg capsule 25 mg PO TID 03/18/24 Unknown History tramadol 50 mg tablet 50 mg PO BID 03/18/24 Unknown History Allergy/AdvReac Type Severity Reaction Status Date / Time duloxetine (From Cymbalta) AdvReac NEEDS Verified 03/18/24 18:43 FOLLOW-UP Surgical History S/P excision of Leiva's neuroma Social History Smoking Status: Never smoker alcohol intake: current alcohol intake frequency: holidays/special occasions only ROS ROS ED ROS Narrative Constitutional: No fever, no chills. Abdominal: No nausea. No vomiting. Musculoskeletal: Positive tenderness and pain in left index fingertip, radiating up finger and into palm of hand. Skin: No rash. No change in color. Lack of capillary refill in left index fingertip Psychiatric: No depression. No anxiety. EXAM Physical Exam Narrative Exam Narrative: Afebrile. Vital signs noted. HEENT: Normocephalic. Atraumatic. PERRL, EOMI. Neck soft and supple. No point tenderness or step off. Cardiovascular: Regular rate and rhythm. No murmurs, rubs, or gallops appreciated. Respiratory: No tachypnea. Lungs clear to auscultation bilaterally. Gastrointestinal: Abdomen soft, nontender, with normoactive bowel sounds. No rebound or guarding. Neurological: Awake. Alert. Nonfocal, nonlateralizing. Skin: No rash. Normal color. No pallor. Musculoskeletal: No pedal edema. Full range of motion extremities. Inspection of the wound on the left index fingertip does reveal subungual hematoma. The skin at the tip of the finger appears pink and healthy. No lymphangitic streaking, no purulent drainage from sutures. There are sutures placed near the base of the nail, no active bleeding. Partial nail avulsion in the area of the germinal matrix. Small amount of old blood expressed with pressing of the subungual hematoma, no pulsatile bleeding. Const Vital Signs: 03/18/24 18:42 03/18/24 20:48 Temperature 97 F L 98.1 F Temperature Source Temporal Pulse Rate 71 65 Respiratory Rate 18 17 Blood Pressure 119/83 H 120/77 Blood Pressure Mean 95 91 Pulse Ox 99 99 Oxygen Delivery Method Room Air MDM MDM MDM Narrative Medical decision making narrative: I had a lengthy discussion with the patient. There is no evidence of infection currently. I do not expect this only 2 days out from his injury. He will continue his antibiotics. This is not active bleeding as I feel that this is old blood that is expressed from the subungual hematoma as the proximal portion of the nail was not sewn down. Additionally, he has healthy, pink skin at the tip of his finger. I do not think that his mother is seeing capillary refill in the very distal tip because the nail is not completely attached or pressed against the capillary nailbed because of the subungual hematoma. At this point in time, he was reassured. He is to follow-up with his primary care provider for referral to orthopedics. I do not feel he needs any laboratory work or repeat imaging with his known open tuft fracture. Return instructions to the emergency department were reviewed. Patient comfortable with the plan. Disposition is discharged home in stable condition. Discharge Plan Triage Chief Complaint: Wound Check ED Provider: Jorge Jonas Dx/Rx/DC Orders Clinical Impression: Encounter for post-traumatic wound check, Subungual hematoma of finger, Open fracture of tuft of distal phalanx of finger Instructions: ED Fracture, Finger, Open, ED Subungual Hematoma, ED Wound Check (No Infection) Prescriptions: No Action hydroxyzine HCl 50 MG tablet 50 mg PO TID PRN (Reason: Anxiety) folic acid 1 MG tablet 1 mg PO DAILY ondansetron 4 MG tablet 4 mg PO Q8H PRN PRN (Reason: Nausea) prednisone 10 mg tablet 10 mg PO DAILY Orencia ClickJect 125 mg/mL auto-injector 125 mg subcut QWEEK sertraline 25 mg tablet 25 mg PO DAILY Patient Comments: take 1 tablet by mouth every morning melatonin 10 mg tablet 10 mg PO QHS Patient Comments: take 1 tablet by mouth once daily at bedtime Ajovy Autoinjector 225 mg/1.5 mL auto-injector 225 mg subcut QMONTH verapamil 180 mg capsule,ext rel. pellets 24 hr 180 mg PO DAILY Patient Comments: take 1 capsule by mouth once daily buprenorphine-naloxone 2-0.5 mg tablet, sublingual 1 tab sublingual DAILY Movantik 25 mg tablet 25 mg PO DAILY Rx Instructions: must be taken on empty stomach; no food 1 hr after or 2-3 hrs before dose lubiprostone 24 mcg capsule 24 mcg PO BID hydroxychloroquine 200 mg tablet 200 mg PO DAILY tizanidine 4 mg capsule 4 mg PO TID methotrexate sodium 25 mg/mL solution 25 mg subcut QWEEK Patient Comments: inject 1 milliliter subcutaneously every week memantine 5 mg tablet 10 mg PO QHS Patient Comments: take 1 tablet by mouth at bedtime for 1 week then INCREASE to 2 tablets by mouth at bedtime pantoprazole 40 mg tablet,delayed release (DR/EC) 40 mg PO BID fluticasone propionate 50 mcg/actuation spray,suspension 2 spray INTRANASAL DAILY Patient Comments: instill 2 sprays into each nostril once daily buspirone 15 mg tablet 30 mg PO DAILY Patient Comments: take 1 tablet by mouth twice a day paliperidone 9 mg tablet extended release 24hr 9 mg PO DAILY Patient Comments: take 1 tablet by mouth at bedtime tramadol 50 mg tablet 50 mg PO BID pregabalin 25 mg capsule 25 mg PO TID Primary Care Provider: Billie Foster Referrals: Billie Foster MD [Primary Care Provider] - 1 Day Activity Restrictions/Additional Instructions: Follow-up with your primary care provider for referral to orthopedic hand regarding your open tuft fracture. Your wound does not appear to be infected currently. Continue your antibiotics and analgesics. Print Language: Rwandan Disposition Disposition: Home, Self Care Discharge Date/Time: 03/18/24 20:49
== END 2024-03-18 20:49 | disposition home or self-care (01) ==
LOC: ED 20:36
PROVIDERS: Emergency Provider Emergency Medicine; PCP Internal Medicine; Visit Provider Emergency Medicine
DX: Z51.89 Encounter for other specified aftercare (principal); M06.9 Rheumatoid arthritis, unspecified; W31.9XXA Contact with unspecified machinery, initial encounter; F41.9 Anxiety disorder, unspecified; F32.A Depression, unspecified; Z79.899 Other long term (current) drug therapy; S62.631B Displaced fracture of distal phalanx of left index finger, initial encounter for open fracture; S60.022A Contusion of left index finger without damage to nail, initial encounter
CPT/HCPCS: 99282

== ENCOUNTER 2024-04-08 10:10 | Emergency (ER) | payer OTHER, MEDICAID, SELFPAY ==
[2024-04-08 10:10] VITALS: BP 114/80; PULSE 97; RESP 14; TEMP 36.8; O2SAT 99; BMI 31.4
--- NOTE | 2024-04-08 11:44 | EX.ED.UPPERE ---
HPI History of Present Illness HPI Narrative: Patient presents with right elbow pain and swelling that has been getting worse over the past week. Patient saw his paleobotanist today who referred him to the emergency department for possible septic arthritis of his elbow. Patient denies any fevers or chills. Patient denies any trauma or injury. Patient states his pain is worse with movement. Patient states it is better with rest. Patient states it is sharp and stabbing. Patient states the pain radiates down to his right wrist. Chief Complaint: Upper Extremity Injury Informant: patient Onset/Context/Timing Onset: Weeks (1) Context: Gradual Onset Timing: Continuous Quality of Pain: Sharp and Stabbing Location: Right elbow Worsened by: Movement Relieved by: Rest Associated Symptoms Associated Symptoms: Negative for Parasthesia, Weakness or Loss of Funtion [facility] Medical History Sleep apnea Fibromyalgia Rheumatoid arthritis Back pain Seizure Severe headache SOB (shortness of breath) Arthritis Tachycardia Depression Anxiety ADHD Frequent headaches Home Medications ?Medication ?Instructions ?Recorded ?Last Taken ?Type folic acid 1 mg tablet 1 mg PO DAILY 07/09/20 Unknown History hydroxyzine HCl 50 mg tablet 50 mg PO TID PRN Anxiety 07/09/20 Unknown History ondansetron 4 mg disintegrating 4 mg PO Q8H PRN PRN Nausea 07/09/20 Unknown History tablet abatacept 125 mg/mL subcutaneous 125 mg subcut QWEEK 05/20/23 Unknown History auto-injector (Orencia ClickJect) buprenorphine 2 mg-naloxone 0.5 mg 1 tab sublingual DAILY 05/20/23 Unknown History sublingual tablet buspirone 15 mg tablet 30 mg PO DAILY 05/20/23 Unknown History fluticasone propionate 50 2 spray intranasal DAILY 05/20/23 Unknown History mcg/actuation nasal spray,suspension fremanezumab-vfrm 225 mg/1.5 mL 225 mg subcut QMONTH 05/20/23 Unknown History subcutaneous auto-injector (Ajovy) hydroxychloroquine 200 mg tablet 200 mg PO DAILY 05/20/23 Unknown History lubiprostone 24 mcg capsule 24 mcg PO BID 05/20/23 Unknown History melatonin 10 mg tablet 10 mg PO QHS 05/20/23 Unknown History memantine 5 mg tablet 10 mg PO QHS 05/20/23 Unknown History methotrexate sodium 25 mg/mL 25 mg subcut QWEEK 05/20/23 Unknown History injection solution naloxegol 25 mg tablet (Movantik) 25 mg PO DAILY 05/20/23 Unknown History paliperidone 9 mg tablet,extended 9 mg PO DAILY 05/20/23 Unknown History release 24 hr pantoprazole 40 mg tablet,delayed 40 mg PO BID 05/20/23 Unknown History release prednisone 10 mg tablet 10 mg PO DAILY 05/20/23 Unknown History sertraline 25 mg tablet 25 mg PO DAILY 05/20/23 Unknown History tizanidine 4 mg capsule 4 mg PO TID 05/20/23 Unknown History verapamil 180 mg 24 hr 180 mg PO DAILY 05/20/23 Unknown History capsule,extended release pregabalin 25 mg capsule 25 mg PO TID 03/18/24 Unknown History tramadol 50 mg tablet 50 mg PO BID 03/18/24 Unknown History cephalexin 500 mg capsule 500 mg PO Q6 #40 CAPSULES 04/08/24 Unknown Rx Allergy/AdvReac Type Severity Reaction Status Date / Time duloxetine (From Cymbalta) AdvReac NEEDS Verified 04/08/24 10:11 FOLLOW-UP Surgical History S/P excision of Leiva's neuroma Social History Smoking Status: Never smoker alcohol intake: current alcohol intake frequency: holidays/special occasions only ROS ROS ED Constitutional Constitutional ED: Denies chills or fever(s) Eyes Eyes: Denies blurry vision or change in vision ENT ENT ED: Denies rhinorrhea or sore throat Cardiovascular Cardiovascular: Denies chest pain or palpitations Respiratory/Chest Respiratory/Chest: Reports cough and sputum; Denies dyspnea Gastrointestinal Gastrointestinal: Denies nausea or vomiting Genitourinary Genitourinary ED: Denies dysuria or hematuria Musculoskeletal Musculoskeletal: Reports back pain; Denies neck pain Integumentary Denies abscess or rash Neurologic Neurologic: Denies headache(s) or weakness Allergic/Immunologic Allergic/Immunologic ED: Denies mouth swelling or urticaria EXAM Physical Exam Const Vital Signs: 04/08/24 10:10 Temperature 98.3 F Temperature Source Temporal Pulse Rate 97 Respiratory Rate 14 Blood Pressure 114/80 Blood Pressure Mean 91 Pulse Ox 99 Oxygen Delivery Method Room Air Positive well nourished and well developed General Appearance ED: well developed and NAD HEENT Reports moist mucous membranes Neck full ROM and supple Resp normal respiratory effort and clear to auscultation bilaterally Cardio regular rate and regular rhythm GI non-tender and non-distended Palpation: soft Extremity Extremity Narrative: There is tenderness over the right elbow. There is some edema noted. There is no obvious deformity noted. Range of motion was limited in all motions of the right elbow secondary to pain. Sensation was intact to light touch in the radial, median, and ulnar areas. Strength is 5/5 in the radial, median, and ulnar areas. Neuro oriented x3, CN's II-XII intact bilaterally, moves all extremities, no focal motor deficits and no sensory deficits noted Sensorium / Orientation: alert Motor Exam: strength 5/5 throughout Psych mental status grossly normal MDM MDM MDM Narrative Medical decision making narrative: Differential diagnosis includes septic arthritis, cellulitis, infectious olecranon bursitis, bronchitis, and pneumonia. X-rays of the right elbow will be obtained to assess for loose body and joint effusion. X-rays of the chest will be obtained to assess for pneumonia and bronchitis. CBC will be obtained to assess for leukocytosis and anemia. Basic metabolic profile will be obtained to assess for electrolyte abnormality and renal function. Sed rate and CRP will be obtained to assess for acute phase reactants. Lab Data Attestation: I reviewed the patient's lab results. Lab results narrative: CBC was reviewed and was within normal limits. Comprehensive metabolic profile was reviewed and was essentially within normal limits. Lipase was reviewed and was normal at 11. CRP was reviewed and was normal at less than 2.9. Sed rate was reviewed and was normal at less than 1. Radiography Chest X-Ray - ED: 2 View, Read by ED Physician, Read by Radiologist and No Acute Disease Diagnostic Testing: PA and lateral chest x-ray was obtained. There are 2 views. On my independent interpretation, lung shay are clear. There is normal cardiac silhouette. Bony thorax is normal. There is no acute process noted. Radiologist also interpreted the x-ray and agrees. X-rays of the right elbow were obtained. There are 3 views. On my independent interpretation, there is no acute fracture. There is no joint effusion. There is spurring of the olecranon process. Radiologist also interpreted the x-ray and agrees. EKG Initial EKG: Attestation: I personally reviewed and interpreted this EKG as follows: Interpretation: Sinus Rhythm (61) and No Acute Injury Pattern Comments: EKG was obtained. On my independent interpretation, it showed a normal sinus rhythm with a rate of 61. SD interval, QRS interval, and QTc intervals were all normal. [place] was normal. There are no acute ST or T wave changes. Prior EKG tracings: available for review Prior: Unchanged (06/04/2021) Treatment and Re-Evaluation Narrative: Patient was given IV fluids and morphine for pain. Patient started having some epigastric pain here in the emergency department. Patient was given a GI cocktail for this. Patient is feeling better on reevaluation. Patient was advised of his findings. Patient was given a dose of Ancef. Patient was advised that the infection is mainly in his skin. It does not look like it goes into the elbow joint. I discussed with the patient the risks of aspiration of his elbow and causing an infection. Patient is agreeable to not have this done at this time. Given that his white blood cell count, sed rate, and CRP are all normal and there is no effusion on his elbow x-ray, I do not feel that this is a septic joint. Also, patient has no pain with short arc range of motion. Patient was given a prescription for Keflex. Patient was instructed to follow-up with his primary care physician in 3 to 5 days. Patient was instructed to return if worse in any way. Patient understood and was agreeable with the plan. All questions were answered. Discharge Plan Triage Chief Complaint: Upper Extremity Injury ED Provider: Francis Gutiérrez Dx/Rx/DC Orders Clinical Impression: Cellulitis of right elbow, Acute epigastric pain Instructions: ED Cellulitis Prescriptions: New cephalexin 500 mg capsule 500 mg PO Q6 Qty: 40 0RF No Action hydroxyzine HCl 50 MG tablet 50 mg PO TID PRN (Reason: Anxiety) folic acid 1 MG tablet 1 mg PO DAILY ondansetron 4 MG tablet 4 mg PO Q8H PRN PRN (Reason: Nausea) prednisone 10 mg tablet 10 mg PO DAILY Orencia ClickJect 125 mg/mL auto-injector 125 mg subcut QWEEK sertraline 25 mg tablet 25 mg PO DAILY Patient Comments: take 1 tablet by mouth every morning melatonin 10 mg tablet 10 mg PO QHS Patient Comments: take 1 tablet by mouth once daily at bedtime Ajovy Autoinjector 225 mg/1.5 mL auto-injector 225 mg subcut QMONTH verapamil 180 mg capsule,ext rel. pellets 24 hr 180 mg PO DAILY Patient Comments: take 1 capsule by mouth once daily buprenorphine-naloxone 2-0.5 mg tablet, sublingual 1 tab sublingual DAILY Movantik 25 mg tablet 25 mg PO DAILY Rx Instructions: must be taken on empty stomach; no food 1 hr after or 2-3 hrs before dose lubiprostone 24 mcg capsule 24 mcg PO BID hydroxychloroquine 200 mg tablet 200 mg PO DAILY tizanidine 4 mg capsule 4 mg PO TID methotrexate sodium 25 mg/mL solution 25 mg subcut QWEEK Patient Comments: inject 1 milliliter subcutaneously every week memantine 5 mg tablet 10 mg PO QHS Patient Comments: take 1 tablet by mouth at bedtime for 1 week then INCREASE to 2 tablets by mouth at bedtime pantoprazole 40 mg tablet,delayed release (DR/EC) 40 mg PO BID fluticasone propionate 50 mcg/actuation spray,suspension 2 spray INTRANASAL DAILY Patient Comments: instill 2 sprays into each nostril once daily buspirone 15 mg tablet 30 mg PO DAILY Patient Comments: take 1 tablet by mouth twice a day paliperidone 9 mg tablet extended release 24hr 9 mg PO DAILY Patient Comments: take 1 tablet by mouth at bedtime tramadol 50 mg tablet 50 mg PO BID pregabalin 25 mg capsule 25 mg PO TID Primary Care Provider: Billie Foster Referrals: Billie Foster MD [Primary Care Provider] - 3-5 Days Print Language: Moroccan Disposition Disposition: Home, Self Care
--- NOTE | 2024-04-08 11:47 | RAD_ITS ---
STUDY: X-RAY - RIGHT ELBOW REASON FOR EXAM: Male, 33 years old. Ten-day history of right elbow pain and swelling. No evidence of trauma. TECHNIQUE: 3 view(s) of the elbow. COMPARISON: None. FINDINGS: Degenerative spur along the olecranon process of the proximal ulna. Normal radiocapitellar and ulnotrochlear articulations. Diffuse soft tissue swelling. RAD/Elbow min 3 Views IMPRESSION: Diffuse soft tissue swelling. Degenerative spur along the olecranon process of the proximal ulna. Electronically Signed: Alfonso Tong MD at 12:42 EDT ,
--- NOTE | 2024-04-08 11:48 | RAD_ITS ---
STUDY: X-RAY CHEST REASON FOR EXAM: Male, 33 years old. Cough TECHNIQUE: PA and lateral views of the chest. COMPARISON: Comparison is made with prior study May 22, 2013. FINDINGS: The lungs are clear and expanded. There is no demonstrated pleural abnormality. Normal size heart. Normal mediastinum and trent. Normal visualized pulmonary arteries. Normal visualized aortic arch and descending thoracic aorta. Normal visualized thoracic spine. Normal visualized ribs, clavicles, and shoulders. There is no demonstrated abnormality of the visualized soft tissue structures of the upper abdomen. RAD/Chest PA and Lateral IMPRESSION: Normal x-ray examination of the chest. Electronically Signed: Alfonso Tong MD at 12:43 EDT ,
[2024-04-08 12:07] LABS: Absolute Lymphocyte Count 1.36 X10^3/uL (0.83-4.51); Absolute Neutrophil Count 7.8 X10^3/uL (2.0-7.7); Basophil# 0.02 X10^3/uL; Basophil% 0.2 % (0-1); Hematocrit 41.9 % (40-54); Hemoglobin 14.5 g/dL (13.0-16.5); Lymphocyte # 1.36 X10^3/ul (0.83-4.51); Lymphocyte % 13.7 % (19-41); Mean Corp Hgb Conc 34.6 g/dL (32-36); Mean Corpuscular Volume 89.5 fL (80-94); Mean Platelet Vol. 11.1 fl (6.2-12.0); Monocyte# 0.56 X10^3/uL; Monocyte% 5.7 % (0-10); NRBC Flagged by Analyzer 0 % (0-5); Neutrophil # 7.83 X10^3/uL (2.7-7.7); Neutrophil % 79.1 % (47-70); Platelet Count 194 K/mm3 (150-450); RBC Distribution Width CV 12.7 % (11.6-14.6); RBC Distribution Width SD 41.6 fl (35.1-43.9); Red Blood Count 4.68 M/mm3 (4.6-6.2); White Blood Count 9.9 K/mm3 (4.4-11.0)
[2024-04-08] MEDS: Morphine 4 MG/ML Syringe IM (12:07)
[2024-04-08] MEDS: 0.9% Normal Saline (1000mL) 1,000 ML 1000 ML IV (12:07)
[2024-04-08 12:29] LABS: Anion Gap 4 (5-15); BUN 12 mg/dL (7-18); BUN/Creat Ratio 17.8 RATIO (10-20); CRP < 2.90 mg/L (0.0-3.0); Calcium,Total 9.2 mg/dL (8.5-10.1); Chloride 112 mmol/L (98-107); Creatinine, Serum 0.68 mg/dL (0.70-1.30); EST Glomerular Filtration Rate 143 mL/min (>60); Est Glom Filt Rate - Afr Amer 173 mL/min (>60); Estimated Creatinine Clearance 188.17 ml/min; Glucose 96 mg/dL (74-106); Potassium 3.4 mmol/L (3.5-5.1); Sodium Level 141 mmol/L (136-145)
--- NOTE | 2024-04-08 12:35 | ED.RN ---
Pt complaining of chest pain. Dr. Gutiérrez notified, EKG ordered
--- NOTE | 2024-04-08 12:37 | EKG12_ITS ---
Test Reason : Blood Pressure : / mmHG Vent. Rate : 061 BPM Atrial Rate : 061 BPM P-R Int : 158 ms QRS Dur : 088 ms QT Int : 396 ms P-R-T Axes : 054 055 034 degrees QTc Int : 398 ms Normal sinus rhythm Normal ECG Confirmed by Ed Jacobo ([id number]), desk editor CHARELNE CARDONA ([id number]) on 04/09/2024 11:28:11 AM Referred By: Confirmed By:Ed Jacobo
[2024-04-08 12:39] LABS: Erythrocyte Sedimentation Rate < 1 mm/hr (0-20)
--- NOTE | 2024-04-08 12:55 | ED.RN ---
dr. saucedo notified of severe epigastric pain.
[2024-04-08 13:00] VITALS: BP 111/67; PULSE 87; RESP 18; TEMP 36.7; O2SAT 98
--- NOTE | 2024-04-08 13:16 | ED.RN ---
Pt continuing to complain of epigastric/chest pain. Dr. Gutiérrez informed
[2024-04-08 13:50] VITALS: BP 108/63; PULSE 71; RESP 18; O2SAT 98
[2024-04-08] MEDS: Lidocaine 2% Viscous15 ML UDC 15 ML PO (13:53)
[2024-04-08] MEDS: Mag Hydrox/Al Hydrox/Simeth 30 ML UDC PO (13:53)
[2024-04-08 14:10] LABS: AST(SGOT) 10 U/L (15-37); Alanine Aminotransfer ALT/SGPT 22 U/L (16-61); Albumin, Serum 3.9 g/dL (3.2-5.0); Alkaline Phosphatase 75 U/L (45-117); Globulin 2.6 g/dL (2.2-4.2); Lipase 11 U/L (13-75); Protein, Total 6.5 g/dL (6.4-8.2)
[2024-04-08] MEDS: Cefazolin 1 GM/50 ML BAG IV (14:57)
[2024-04-08 15:27] VITALS: BP 107/75; PULSE 82; RESP 20; TEMP 36.2; O2SAT 97
== END 2024-04-08 15:30 | disposition home or self-care (01) ==
PROVIDERS: Emergency Provider Emergency Medicine; PCP Internal Medicine; Visit Provider Emergency Medicine
DX: L03.113 Cellulitis of right upper limb (principal); M06.9 Rheumatoid arthritis, unspecified; R10.13 Epigastric pain; F41.9 Anxiety disorder, unspecified; F32.A Depression, unspecified
CPT/HCPCS: 71046; 73080; 80048; 80076; 83690; 85025; 85652; 86140; 93005; 96361; 96365; 96372; 99283; J7050; A4216

== ENCOUNTER 2024-05-04 14:43 | Emergency (ER) | payer OTHER, MEDICAID, SELFPAY ==
[2024-05-04 14:44] VITALS: BP 135/92; PULSE 90; RESP 16; TEMP 36.6; O2SAT 100; BMI 30.5
--- NOTE | 2024-05-04 15:10 | RAD_ITS ---
INDICATION: wrist pain EXAMINATION/TECHNIQUE: X-RAY - RIGHT XR Wrist Min 3 Views 3 VIEWS COMPARISON: Prior study dated: 10/29/2012 FINDINGS: SOFT TISSUES: No soft tissue swelling or gas. No radiopaque foreign body. BONES/JOINTS: No acute fracture or subluxation.. Normal alignment. Preservation of the joint space.. No sclerotic or destructive changes observed. RAD/Wrist min 3 Views IMPRESSION: No evidence of acute fracture. Electronically Signed: Kunal Larsen MD at 15:37 EDT ,
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
--- NOTE | 2024-05-04 15:30 | RAD_ITS ---
INDICATION: pain EXAMINATION/TECHNIQUE: X-RAY - RIGHT XR Forearm 2 Views 2 VIEWS COMPARISON: No relevant prior comparison study available FINDINGS: SOFT TISSUES: No soft tissue swelling or gas. No radiopaque foreign body. BONES/JOINTS: No acute fracture or subluxation.. Degenerative spur of the olecranon process. Preservation of the joint space.. No sclerotic or destructive changes observed. RAD/Forearm 2 Views IMPRESSION: No evidence of acute fracture. Electronically Signed: Kunal Larsen MD at 16:01 EDT ,
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
== END 2024-05-04 17:23 | disposition home or self-care (01) ==
PROVIDERS: Emergency Provider Emergency Medicine; PCP Internal Medicine; Visit Provider Emergency Medicine
DX: S50.11XA Contusion of right forearm, initial encounter (principal); S60.211A Contusion of right wrist, initial encounter; Y00.XXXA Assault by blunt object, initial encounter; Y93.89 Activity, other specified; Y99.8 Other external cause status; Z63.0 Problems in relationship with spouse or partner
CPT/HCPCS: 73090; 73110; 99283